=== PATIENT | female | born 1950 | race Caucasian/White ===

== ENCOUNTER 2017-09-13 14:19 | Inpatient (IN) | payer MEDICARE, OTHER ==
--- NOTE | 2017-09-13 15:31 | CT ---
CT OF THE BRAIN WITHOUT CONTRAST: Date: 09/13/17 COMPARISON: None. HISTORY: Dizziness. Patient passed out and fell with head trauma. TECHNIQUE: Multiple contiguous axial images were obtained in a CT of the brain without contrast. FINDINGS: There are a few scattered hypodensities in the subcortical and periventricular white matter, likely secondary to small vessel ischemic disease. No large confluent infarction is seen. There is no evide nce of hydrocephalus, intracranial hemorrhage, or extra-axial fluid collection. The calvarium and overlying soft tissues are unremarkable. The visualized paranasal sinuses and mast oid air cells are well aerated. IMPRESSION: No evidence of acute intracranial abnormality. POS: [facility]
--- NOTE | 2017-09-13 16:07 | RAD ---
AP VIEW OF THE CHEST 09/13/17 INDICATION: Syncope. COMPARISON: None. FINDINGS: There is mild COPD changes. Heart size is within normal limits. There are vascular calcifications in volving the aortic arch. No acute osseous abnormality is evident. IMPRESSION: No acute cardiopulmonary abnormality. POS: [facility]
[2017-09-13 16:26] LABS: #Basophils 0.1 thou/uL (0.0-0.2); #Eosinphils 0.1 thou/uL (0.0-0.7); #Lymphocytes 2.5 thou/uL (1.20-3.40); #Monocytes 0.6 thou/uL (0.11-0.59); %Basophils 0.9 % (0.0-1.0); %Eosinophils 1.4 % (0.0-10.0); %Lymphocytes 27.1 % (21.0-51.0); %Monocytes 6.5 % (0.0-10.0); Hematocrit 47.5 % (36.0-47.0); Mean Platelet Volume 8.5 fL (7.4-10.4); Red Blood Cell (RBC) Count 4.77 mill/uL (4.20-5.40); White Blood Cell (WBC) Count 9.4 thou/uL (4.8-10.8)
[2017-09-13 16:47] LABS: ALT (SGPT) 14 U/L (8-55); AST (SGOT) 32 U/L (5-34); Alkaline Phosphatase 104 U/L (40-150); Anion Gap 24 mmol/L (10-20); BUN (Urea Nitrogen) 19 mg/dL (9.8-20.1); Bilirubin, Total 0.6 mg/dL (0.2-1.2); CK (CPK) 45 U/L (29-168); Calc. Creatinine Clearance 0 mL/min (70-130); Calcium 10.8 mg/dL (7.8-10.44); Carbon Dioxide 17 mmol/L (23-31); Chloride 101 mmol/L (98-107); Estimated GFR-MDRD 52; Globulin 3.5 g/dL (2.4-3.5); Magnesium 2.3 mg/dL (1.6-2.6); Protein, Total 7.4 g/dL (6.0-8.3)
[2017-09-13 17:53] LABS: Troponin I Less than 0.010 ng/mL (< 0.028)
[2017-09-13] MEDS ORDERED: Ondansetron ODT 4 MG TAB SL PRN (20:12)
[2017-09-13] MEDS ORDERED: Ondansetron HCl/PF 4 MG/2 ML Vial IVP PRN (20:12)
[2017-09-13 20:23] VITALS: BMI 20.9
--- NOTE | 2017-09-13 21:08 | CON ---
HISTORY OF PRESENT ILLNESS: The patient is a 66-year-old woman who presents after losing consciousness. The patient has a history of coronary artery disease. She had recently moved to this area. She has previously undergone PTCA and stent placement. She reported having also a history of atrial fibrillation. The patient most recently underwent a cardiac catheterization in April of 2017. She was found to have a 40% proximal LAD lesion. There was a 40% stenosis of the first diagonal branch and a 60% mid stenosis. The left circumflex artery was free of significant disease, and the right coronary had a 30% in-stent restenosis. The patient has been on medical therapy. She recently has had several episodes of syncope . She suddenly loses consciousness. The patient denies having any chest discomfort. The patient is not lose control of her bladder or bowel. PAST MEDICAL HISTORY: 1. Hypertension. 2. Hypercholesterolemia. 3. Diabetes mellitus. 4. Atrial fibrillation. PAST SURGICAL HISTORY: Bilateral mastectomy. ALLERGIES: ERYTHROMYCIN, PENICILLIN. SOCIAL HISTORY: The patient continues to smoke. MEDICATIONS ON ADMISSION: Effexor 150 daily, Plavix 75 daily, metformin 850 daily, Crestor 40 at bedtime, tamoxifen 20 daily,and aspirin 81 daily. REVIEW OF SYSTEMS: Ten-point system otherwise unremarkable. No history of easy bruising, bleeding , bright red blood per rectum. PHYSICAL EXAMINATION: GENERAL: This is a thin woman in no acute distress. VITAL SIGNS: BP-130/80. NECK: No jugular venous distention. LUNGS: Clear to auscultation. HEART: Regular rate and rhythm, normal S1, S2. ABDOMEN: Nondistended. EXTREMITIES: Showed trace edema. LABORATORY: Pending. IMPRESSION: 1. Syncope probably orthostatic 2. Sick sinus syndrome with atrial fibrillation. 3. Hypertension. 4. Diabetes mellitus. 5. Breast carcinoma. 6. Tobacco abuse. This patient presents after several syncopal episodes. The patient underwent an event monitor was found to have rapid atrial fibrillation, rate of 160 as well as evidence of bradycardia. With her history of syncope and sick sinus syndrome, she will need to have placement of electronic pacemaker .She will then be placed on probable antiarrhythmic therapy. The patient will be admitted to telemetry. We will arrange for possible pacemaker placement. We will follow this patient with you through her hospitalization. JE
[2017-09-13] MEDS ORDERED: Nitroglycerin 0.4 MG TAB (25 Tab Bottle) SL PRN (21:38)
--- NOTE | 2017-09-14 06:27 | HP ---
HISTORY OF PRESENT ILLNESS: Ms. Samano is a 66-year-old woman treated by Dr. Robi Wick, who was hospitalized through the emergency room with recurrent syncopal spell, coinciding with atrial fibrillation. The history is taken from the patient herself and some medical records as well as from speaking to the emergency room physician. She has had some syncopal spells in the past and is being followed by Dr. Ned Healy, lip of shank cutter. She is known to have some episodes of lightheadedness today while in the setting of her own home, she was walking with her hand, reaching out a piece of furniture for stability, and she felt dizzy. This dizziness was not a vertigo- type dizziness, but a lightheadedness. Her was by her side. With minimal warning, she collapsed and as she did, she struck her forehead on a jewelry box, but he was able to catch her before her head would strike the floor. She had also been having some shortness of breath with walking, but no chest pain or fever. She reports to me that she did feel some palpitations. Note: The patient's syncopal spell coincided with a dysrhythmia and atrial fibrillation with a rate of 160 on her Holter monitor. She was then advised to seek healthcare for this. PAST MEDICAL HISTORY: Includes coronary artery disease, status post stent placement; diabetes mellitus treated with oral medication; history of major depression; breast cancer, status post bilateral mastectomy; history of atrial flutter, history of hyperthyroidism; history of uterine cancer, status post D\T\ C; history of rheumatic fever in third grade; tobacco abuse. PAST SURGICAL HISTORY: 1. Bilateral mastectomy. 2. Cardiac stent. 3. Uterine D\T\C. HABITS: No alcohol, tobacco 40 years. SOCIAL HISTORY: The patient is . She has 4 children that live in various locations. She has a son that lives locally. She is retired. She likes to play [employer] games on her telephone. Her [employer]aritan is [employer]. She moved to the area within the last year. POSSIBLE ALLERGIES: 1. ERYTHROMYCIN causes rash. 2. PENICILLIN causes rash. 3. PREDNISONE causes rash. MEDICATIONS: Include mirtazapine 7.5 mg daily, Crestor 40 mg daily, venlafaxine ER 150 mg daily, vitamin D 2000 international units daily, tamoxifen 20 mg daily, metformin 850 mg daily, 81 mg aspirin daily, clopidogrel bisulfate 75 mg daily. PHYSICAL EXAMINATION: VITAL SIGNS: Blood pressure 122/67, temperature 98.7, pulse 86, respiratory rate 16, O2 sat 97, weight 107 pounds. GENERAL: Alert, pleasant, in no acute distress, lying in the supine position with the head of bed raised to about 45 degrees. HEENT: There is a bluish raised area mostly to the middle portion of her forehead, consistent with a hematoma. No conjunctivitis. Oral cavity is without erythema or exudate. There are upper dentures noted. LUNGS: Clear to auscultation without crackles or wheezes. NECK: Supple without lymphadenopathy or thyromegaly. CARDIAC: Regular rate and rhythm without murmur, gallop, or rub. ABDOMEN: Soft, nontender. SKIN: With normal texture and appearance except as above. NEUROLOGIC: A 5/5 motor strength in hand manager testing as well as dorsiflexion and plantar flexion. LABORATORY AND X-RAY FINDINGS: Electrocardiogram shows normal sinus rhythm with a rate of 96. Chest x-ray is reported as normal. Head CT is reported as normal. White blood cell count 9.4, hemoglobin 15.6, platelets are 245. Sodium 138, potassium 3.8, CO2 of 17, creatinine 1.06, GFR 52, calcium 10.8, albumin 3.9. ASSESSMENT: 1. Syncopal spell with atrial fibrillation and mild head trauma. She is having symptomatic atrial fibrillation with minimal advanced warning. 2. Frontal area hematoma . 3. Coronary artery disease 4. diabetes 5. depresson PLAN: 1. Hospitalization. 2. Monitor on telemetry. 3. Cardiology consultation and definitive care for her atrial fibrillation. JE
[2017-09-14] MEDS ORDERED: Clindamycin/D5W 600 mg/50 ml Premix Bag ONE (06:31)
[2017-09-14] MEDS ORDERED: Levofloxacin 500 mg/D5W 100 ml Premix Bag ONE (06:31)
[2017-09-14] MEDS ORDERED: Dextrose 5% in Water 1,000 ML IV PRN (08:10)
[2017-09-14] MEDS ORDERED: Dextrose 50% Abboject 50 ML SYRINGE SLOW IVP PRN (08:10)
[2017-09-14] MEDS ORDERED: HumaLOG 300 UNITS/3 ML VIAL SC PRN (08:10)
[2017-09-14] MEDS ORDERED: Ondansetron HCl 4 MG/5 ML UDCUP PO PRN (08:11)
[2017-09-14] MEDS ORDERED: Ondansetron HCl/PF 4 MG/2 ML Vial IVP PRN (08:11)
--- NOTE | 2017-09-14 08:45 | PRG ---
DATE OF SERVICE: 09/14/2017 HISTORY OF PRESENT ILLNESS: The patient states she has been resting comfortably in bed upon transfer to floor. No further syncopal episodes at this point in time. Bruising over in her left arm and forehead still ache, but her pain is tolerable. She would prefer not to take medications if possible for pain. She has no current chest pain or shortness of breath. The patient verbalized understanding about possible need for pacemaker given both past and slow rhythms. Dr. Healy has consulted Dr. Wang for evaluation of pacemaker placement. Dr. Wang noted the patient's orthostasis and tachyarrhythmia's, will seek electrophysiology follow up prior to any pacemaker placement as the patient would likely still need additional medications for orthostatic hypotension or tachyarrhythmia's on top of pacemaker. The patient and family, including son and at bedside verbalized understanding regarding this evaluation. The patient has no acute complaints otherwise. VITAL SIGNS: On arrival to the floor this morning, temperature of 97.7, pulse of 83, respiratory rate 17, oxygen saturation 97% on room air, blood pressure 169/87, lowest heart rate since on the floor 75. Highest heart rate 105. The patient currently in the 90s on heart rate. LABORATORY DATA: White blood cell count of 9.4, hemoglobin 15.6, platelet count 245. Troponin less than 0.01. Sodium of 138, potassium of 3.8, chloride of 101, BUN 19, creatinine of 1.06, blood glucose last check of 127, calcium of 10.8, albumin 3.9, AST of 32, ALT of 14. Review of CT brain negative for acute intracranial event. CT chest negative for acute cardiothoracic event. PHYSICAL EXAMINATION: GENERAL: The patient is alert and oriented, no acute distress. HEENT: Head is normocephalic. Ecchymosis to frontal bones medially along the midline, tender to touch. No lacerations noted. Extraocular movements are intact. Sclerae are clear. NECK: Supple. Slightly stiff, but otherwise nontender. HEART: Regular rate and rhythm at time of exam. No murmurs auscultated. LUNGS: Clear to auscultation bilaterally. ABDOMEN: Soft, nontender, positive bowel sounds throughout. EXTREMITIES: Lower extremities without cyanosis or edema. Multiple ecchymoses to the upper and lower extremities from prior fall, the largest of which is the left medial arm. NEUROLOGIC: The patient is alert and oriented x3. Speech is normal. ASSESSMENT AND PLAN: 1. Paroxysmal atrial fibrillation with rapid ventricular response captured on event monitor placed and my request for Dr. Healy's office. Since arrival to the hospital, her heart rate has been much more stable. Electrophysiology being consulted by Dr. Wang for evaluation for any possible ablation or arrhythmia medications, recommendations. 2. Orthotic hypertension. The patient was both orthostatic in my office and Dr. Healy's office. She was started on 5 mg b.i.d. of Midodrine which the patient has been able to take possibly for 1 day prior to the syncopal episode and tachycardia event. Currently held while inpatient. The patient is currently on bed rest. 3. Bradycardia, no evidence of bradycardia at this hospitalization. The patient has lowest documented heart rate of 54 in the last 2 months, but this was a self-monitoring with event monitor in place. 4. Syncope likely secondary to tachyarrhythmia and orthostatic hypotension as above, following up with electrophysiology's recommendations as well as cardiology's recommendations for any pacemaker placement. 5. Diabetes type 2, currently controlled with metformin. We will follow Accu- Cheks and sliding scale insulin as needed. 6. Coronary artery disease. The patient has been unable to tolerate beta blockers, GRACIE inhibitors secondary to orthostatic hypotension. She is currently compliant with aspirin and Plavix and Crestor. 7. Sick sinus syndrome. Given patient's bradycardia and tachycardia, evaluations as per above. [facility]
[2017-09-14] MEDS ORDERED: Sodium Chloride 0.9% 1,000 ML IV SCH (13:00)
[2017-09-14] MEDS ORDERED: Lidocaine 1% w/Epinephrine 1:100K 20 ML VIAL ONE (15:02)
[2017-09-14] MEDS ORDERED: Sodium Chloride 0.9% 10 ML ONE (15:56)
[2017-09-14] MEDS: metFORMIN 850 MG TAB PO SCH ×2 (17:12→18:09)
[2017-09-14] MEDS ORDERED: Acetaminophen 500 MG TAB PO SCH (17:15)
[2017-09-14] MEDS: Venlafaxine HCl XR 150 MG CAP PO SCH (18:08)
[2017-09-14] MEDS: Fish Oil 1,000 MG CAP PO SCH (18:08)
[2017-09-14] MEDS: Clopidogrel Bisulfate 75 MG TAB PO SCH (18:10)
[2017-09-14] MEDS: Dronedarone HCl 400 MG TAB PO SCH (18:10)
[2017-09-14] MEDS: Aspirin 81 mg Enteric Coated Tablet PO SCH (18:10)
--- NOTE | 2017-09-14 18:32 | CCL ---
INDICATION FOR PROCEDURE: This is a 66-year-old female with multiple syncopal episodes which are either due to the significant bradycardia or due to orthostatic hypotension. She does have episodes also of atrial arrhythmias. She was seen also by the branch operation evaluation manager. It was found to have most likely she would best be served by undergoing Linq device, an implantable loop recorder to determine whether or not her synco pal episodes are associated with bradycardia or not and whether or not she may be a candidate to und ergo further ablations for the atrial flutter/fibrillation prior to placing pacemaker insertion, sh e may not have bradycardia will need to determine whether or not she is having a true syncopal episo maddy due to bradycardia or some other etiology. She was taken to the recovery area where she underwent local Xylocaine after being given sterile pre p and then the Linq implantable loop recorder was easily implanted without difficulties or complicat ions. The thresholds and the sensing was set and sensing was found to be normal. There were no complicati ons or difficulties encountered.
[2017-09-14] MEDS: Midodrine HCl 5 MG TAB PO SCH (20:49)
[2017-09-14] MEDS: Mirtazapine 15 MG TAB PO SCH (20:49)
--- NOTE | 2017-09-15 01:05 | CON ---
ELECTROPHYSIOLOGY CONSULTATION REPORT DATE OF CONSULTATION: 09/14/2017 REFERRING PHYSICIAN: Dr. Healy. I am seeing Ms. Samano at our [facility] telemetry floor as an electrophysiology consult ant. Her problems are: 1. Recurrent syncopal spell. A. Prior orthostasis noted. B. Tachybrady syndrome with episodic atrial fibrillation/flutter on the monitor in the past And a t endency for mild bradycardia. 2. History of coronary artery disease. A. Prior stent placement in 11/2015 in the RCA. B. Repeat left heart catheterization in 04/18/2017 with LVEF of 50%, 40% proximal LAD, 60% mid LAD and 30% RCA stenosis. 3. Coronary artery risk factors. A. Hypertension. B. Hypercholesterolemia. C. Type 2 diabetes. 4. History of breast cancer, status post bilateral mastectomy. 5. History of smoking. ALLERGIES: ERYTHROMYCIN and PENICILLIN. MEDICATIONS: At home include Effexor, Plavix, metformin, Crestor, tamoxifen and aspirin. SUBJECTIVE: Ms. Samano is here with symptoms of recurrent syncopal spell in fact recurrent episo de - prior to admission and she was getting up, got dizzy, tried to get hold of the edge of a table and then she collapsed. Her was nearby, but could not catch her from falling on the ground. She denied palpitations. No chest pain is noted and she had no seizure-like activity. No inconti nence, no postictal state. She did have significant bruising. Currently, she is feeling well. No angina, no CHF, no PND, orthopnea or lower extremity edema. She does get dizziness on standing up t o mild degree. Dr. Healy just started her on midodrine. Rest of 12-point system otherwise unrem arkable. PAST MEDICAL HISTORY: As above. SOCIAL HISTORY: Patient denies smoking, EtOH or drug abuse. FAMILY HISTORY: Noncontributory. OBJECTIVE: VITAL SIGNS: Blood pressure is 133/65, heart rate is 79, respirations 18 and temperature 98 degrees Fahrenheit. Orthostatic blood pressure measurements this morning reveals reclining blood pressure 149/77 and standing blood pressure 131/92. GENERAL: This is an alert and oriented woman in no apparent distress. NECK: Supple. Jugular veins are not distended. CHEST: Coarse without crackles. CARDIOVASCULAR: Heart sounds are regular to rate and rhythm. No murmur or gallop. ABDOMEN: Benign. Bowel sounds are positive. EXTREMITIES: Lower extremities without edema, clubbing or cyanosis. Pulses are adequate. NEUROLOGIC: Patient is nonfocal. MUSCULOSKELETAL: Without joint swelling or deformities. SKIN: Without rash. Mastectomy scars were noted. DATABASE: The EKGs reviewed revealing sinus rhythm at 96 beats per minute on 09/13/2017. Initial Q TC is 467 milliseconds. The subsequent telemetry strips reveal runs of atrial fibrillation, possibly short flutters . I also reviewed the loop recorder notes from Dr. Healy's office and that seems to indicate atrial fibrillation with rapid rate, not typically symptomatic. ASSESSMENT: Ms. aSmano is a pleasant 66-year-old woman with prior history of orthostatic hypoten carlos started quite a few time ago, has been getting progressively worse. She had prior syncopal spe lls. Loop recorder does reveal episodes of atrial fibrillation not necessarily finding correlation to the rhythm. Also had tendency for bradycardia. Now, she is admitted with the recurrent syncopal spell and currently only mildly orthostatic after midodrine was initiated just prior to the admissi on. 1. I discussed the issues with her and Dr. Healy as well as Dr. Wang. This lady's syncopal spel ls are likely to be orthostatic in nature, although additionally atrial fibrillation with rapid rate versus bradycardic events could still possibly contribute to this. So far the longer loop recorder did not reveal true correlation with arrhythmias. On the other hand, she clearly has episodes of a trial fibrillation with rapid rate. With the bradycardia tendency, it will be howard to monitor her i f any negative chronotropic agents will be used on her. I think it will be reasonable to consider M ultaq, which likely would reduce her heart rate response even if atrial fibrillation recurs, but guillaume l need to be watched for bradycardia. Also, further QT prolongation also need to be monitored hence she is still on tamoxifen. She might benefit from hospital stay for the duration of a Multaq loadi ng over the weekend. Also a long-term loop recorder implant might be reasonable. 2. Paroxysmal atrial fibrillation was asymptomatic. She might be a reasonable candidate for electr ophysiology study and ablation procedure, but likely will need pulmonary venous isolation procedure, which should be only performed with anticoagulation on board. Currently, as I discussed with Dr. Jessica moreno, she is not a candidate for anticoagulation due to her severe falls and syncopal spells. Ho pefully, her orthostasis will improve with administration of midodrine and possibly Florinef and thi s anticoagulation could be reconsidered at that time. Subsequently, possibly ablation could be cons idered if true necessity after Multaq use. 3. Hypertension. Monitor for supine hypertension, which will be likely difficult to control. 4. Coronary artery disease, currently stable. Alternatively, possible flecainide could be also con sidered, but likely will need additional beta-mathew therapy as well if the Multaq fails. On the o ther hand; I would use it doing as a last resort for antiarrhythmic agents. PLAN: 1. Loop recording implant. 2. Multaq. 3. Monitor with telemetry and EKGs for bradycardia and worsening QT prolongation. 4. Optimize orthostasis by titrating midodrine and possibly Florinef.
[2017-09-15] MEDS: Venlafaxine HCl XR 150 MG CAP PO SCH ×2 (11:29→11:30)
[2017-09-15] MEDS: Dronedarone HCl 400 MG TAB PO SCH ×2 (11:30→17:06)
[2017-09-15] MEDS: Midodrine HCl 5 MG TAB PO SCH ×2 (11:30→20:48)
[2017-09-15] MEDS: Fish Oil 1,000 MG CAP PO SCH (11:30)
[2017-09-15] MEDS: metFORMIN 850 MG TAB PO SCH (11:30)
[2017-09-15] MEDS: Aspirin 81 mg Enteric Coated Tablet PO SCH (11:31)
[2017-09-15] MEDS: Clopidogrel Bisulfate 75 MG TAB PO SCH (11:31)
--- NOTE | 2017-09-15 14:00 | PDOC.CTH ---
<Abi Menjivar - Last Filed: 09/15/17 13:55> Cardiology Progress Note - Subjective The pt was seen and examined. No overnight events. No cardiac complaints. There were some oozing from LINQ placement site last night. Hematoma around the site, no bleeding or no pain to palpate around the site - Objective Vital Signs Temp Pulse Resp BP BP Pulse Ox 09/15/17 11:38 98.9 F 80 17 134/80 97 09/15/17 09:05 98.1 F 76 18 139/82 96 09/15/17 08:00 98.3 F 78 78 H 97 09/15/17 04:00 98.3 F 78 78 H 128/75 97 Weight 107 lb 12.8 oz 09/14/17 09/15/17 09/16/17 06:59 06:59 06:59 Intake Total 810 Balance 810 - Physical Examination General/Neuro: alert & oriented x3 Neck: no JVD present Lungs: CTA Heart: RRR Abdomen: soft Extremities: other: (No edemas; bruise on her forehead and around the LINQ site) - Telemetry Telemetry Rhythm: SR with PACs - Labs Result Diagrams: 09/13/17 16:04 09/13/17 16:04 Troponin/CKMB CK-MB (CK-2) 1.7 ng/mL (0-6.6) 09/13/17 16:03 Troponin I Less than 0.010 ng/mL (< 0.028) 09/13/17 16:03 - Assessment/Plan 1. Multiple hx of syncopal episodes - s/p fall; LINQ placement on 09/14/17; 2. Tachybrady syndrome with Afib with RVR - SR with PACs since 2199 @ 09/14/17 with Multaq; HR up to 130-140s for a few secs today; the pt was asymptomatic and stable VS 3. CAD with hx of stent in RCA in 2016 - Stable; on ASA, Plavix, cont. monitor 4. HTN - stable with current medication 5. Hyperlipidemia - on Statin med 6. DM type 2 - on Metformin; managed by PCP 7. Tobacco Abuse - smoking education given to the pt 8. Hx of Breast Ca - on Tamoxifen; MAR reviewed Review of Systems - Review of Systems Constitutional: reports: no symptoms reported EENTM: reports: no symptoms reported Respiratory: reports: no symptoms reported Cardiac (ROS): reports: no symptoms reported ABD/GI: reports: no symptoms reported : reports: no symptoms reported Musculoskeletal: reports: no symptoms reported Skin: reports: no symptoms reported Neurological: reports: no symptoms reported <Emerald Wang - Last Filed: 09/15/17 20:40> Cardiology Progress Note - Objective Vital Signs Temp Pulse Resp BP BP Pulse Ox 09/15/17 15:57 97.7 F 78 18 122/75 95 09/15/17 11:38 98.9 F 80 17 134/80 97 09/15/17 09:05 98.1 F 76 18 139/82 96 Weight 107 lb 12.8 oz 09/14/17 09/15/17 09/16/17 06:59 06:59 06:59 Intake Total 810 720 Balance 810 720 - Labs Result Diagrams: 09/13/17 16:04 09/13/17 16:04 Troponin/CKMB CK-MB (CK-2) 1.7 ng/mL (0-6.6) 09/13/17 16:03 Troponin I Less than 0.010 ng/mL (< 0.028) 09/13/17 16:03 - Assessment/Plan Pt. was seen and eval. by me. I agree with the A/p by the SURGICAL SERVICES TECH. The site of the loop recorder is WN post procedure.No significant bradycardia. Tolerating the Multaq.
[2017-09-15] MEDS: Acetaminophen 500 MG TAB PO PRN (14:24)
[2017-09-15] MEDS: Mirtazapine 15 MG TAB PO SCH (20:48)
[2017-09-16] MEDS: Acetaminophen 500 MG TAB PO PRN ×2 (07:33→19:53)
[2017-09-16] MEDS: metFORMIN 850 MG TAB PO SCH (07:33)
[2017-09-16] MEDS: Fish Oil 1,000 MG CAP PO SCH (07:34)
[2017-09-16] MEDS: Clopidogrel Bisulfate 75 MG TAB PO SCH (07:35)
[2017-09-16] MEDS: Venlafaxine HCl XR 150 MG CAP PO SCH (07:35)
[2017-09-16] MEDS: Aspirin 81 mg Enteric Coated Tablet PO SCH (07:35)
[2017-09-16] MEDS: Midodrine HCl 5 MG TAB PO SCH ×2 (07:35→19:53)
[2017-09-16] MEDS: Dronedarone HCl 400 MG TAB PO SCH ×2 (07:35→17:36)
[2017-09-16] MEDS ORDERED: Digoxin 0.5 MG/2 ML AMP SLOW IVP SCH (10:15)
[2017-09-16 12:06] LABS: Anion Gap 14 mmol/L (10-20); BUN (Urea Nitrogen) 17 mg/dL (9.8-20.1); Calc. Creatinine Clearance 37 mL/min (70-130); Calcium 10.9 mg/dL (7.8-10.44); Carbon Dioxide 25 mmol/L (23-31); Chloride 103 mmol/L (98-107); Estimated GFR-MDRD 46
--- NOTE | 2017-09-16 15:20 | PDOC.CTH ---
<Abi Menjivar - Last Filed: 09/16/17 15:19> Cardiology Progress Note - Subjective the pt was seen and examined. No overnight events. No cardiac complaints. 3 hr episode of Afib from 0830 to 1130; converted back to SR. The pt was asymptomatic. - Objective Vital Signs Temp Pulse Resp BP BP Pulse Ox 09/16/17 12:00 97.7 F 78 18 106/70 97 09/16/17 10:55 82 09/16/17 08:00 98.1 F 81 16 99 09/16/17 07:38 98.1 F 81 16 126/77 99 09/16/17 04:00 97.9 F 74 18 125/77 96 Weight 112 lb 3.2 oz 09/15/17 09/16/17 09/17/17 06:59 06:59 06:59 Intake Total 810 1020 240 Balance 810 1020 240 - Physical Examination General/Neuro: alert & oriented x3 Neck: no JVD present Lungs: CTA Heart: RRR Abdomen: soft Extremities: other: (No edema; no bleeding from LINQ placement site) - Telemetry Telemetry Rhythm: SR - Labs Result Diagrams: 09/13/17 16:04 09/16/17 11:28 Troponin/CKMB CK-MB (CK-2) 1.7 ng/mL (0-6.6) 09/13/17 16:03 Troponin I Less than 0.010 ng/mL (< 0.028) 09/13/17 16:03 - Assessment/Plan 1. Multiple hx of syncopal episodes - s/p fall; LINQ placement on 09/14/17; 2. Tachybrady syndrome with Afib with RVR - about 3 hr episode of Afib with HR up to 130-140s today; Converted back to SR at 1130 today; on Multaq and started Digoxin; the pt was asymptomatic and stable VS; on ASA, OAC is on hold due to multiple of Falls; The pt and family concerned about OAC due to hx of falls 3. CAD with hx of stent in RCA in 2016 - Stable; on ASA and Plavix; cont. monitor 4. HTN - stable with current medication 5. Hyperlipidemia - on Statin med 6. DM type 2 - on Metformin; managed by PCP 7. Tobacco Abuse - smoking education given to the pt 8. Hx of Breast Ca - on Tamoxifen; JAN reviewed Review of Systems - Review of Systems Constitutional: reports: no symptoms reported EENTM: reports: no symptoms reported Respiratory: reports: no symptoms reported Cardiac (ROS): reports: no symptoms reported ABD/GI: reports: no symptoms reported : reports: no symptoms reported Musculoskeletal: reports: no symptoms reported Skin: reports: no symptoms reported <Emerald Wang - Last Filed: 09/16/17 20:18> Cardiology Progress Note - Objective Vital Signs Temp Pulse Resp BP Pulse Ox 09/16/17 17:35 80 09/16/17 15:47 97.9 F 79 16 114/72 96 09/16/17 12:00 97.7 F 78 18 106/70 97 09/16/17 10:55 82 Weight 112 lb 3.2 oz 09/15/17 09/16/17 09/17/17 06:59 06:59 06:59 Intake Total 810 1020 880 Balance 810 1020 880 - Labs Result Diagrams: 09/13/17 16:04 09/16/17 11:28 Troponin/CKMB CK-MB (CK-2) 1.7 ng/mL (0-6.6) 09/13/17 16:03 Troponin I Less than 0.010 ng/mL (< 0.028) 09/13/17 16:03 - Assessment/Plan Pt. seen and evaluated. She complained this afternoon of a dizzy episode when she tried to get up and go to the bathroom. No changes on the monitor. BP was not evaluated at that time. I agre with the A/P by the ELECTRICAL SOFTWARE ENGINEER. I will add waist high compression hose for her orthostatic hypotension.
[2017-09-16] MEDS: Digoxin 0.5 MG/2 ML AMP SLOW IVP SCH ×2 (17:35→23:43)
[2017-09-16] MEDS: Mirtazapine 15 MG TAB PO SCH (19:52)
[2017-09-17] MEDS: Dronedarone HCl 400 MG TAB PO SCH ×2 (08:21→16:16)
[2017-09-17] MEDS: Aspirin 81 mg Enteric Coated Tablet PO SCH (08:21)
[2017-09-17] MEDS: Clopidogrel Bisulfate 75 MG TAB PO SCH (08:22)
[2017-09-17] MEDS: Digoxin 0.125 MG TAB PO SCH (08:22)
[2017-09-17] MEDS: Midodrine HCl 5 MG TAB PO SCH ×2 (08:23→21:27)
[2017-09-17] MEDS: Fish Oil 1,000 MG CAP PO SCH (08:23)
[2017-09-17] MEDS: Acetaminophen 500 MG TAB PO PRN (17:25)
[2017-09-17] MEDS: Mirtazapine 15 MG TAB PO SCH (21:27)
--- NOTE | 2017-09-17 22:04 | EKG ---
Test Reason : Blood Pressure : / mmHG Vent. Rate : 077 BPM Atrial Rate : 077 BPM P-R Int : 174 ms QRS Dur : 088 ms QT Int : 438 ms P-R-T Axes : 065 050 030 degrees QTc Int : 495 ms Sinus rhythm with Premature atrial complexes Prolonged QT Abnormal ECG When compared with ECG of 16-SEP-2017 01:53, (Unconfirmed) Premature atrial complexes are now Present Confirmed by BENITEZ PEPE, SMagdaleno (4) on 09/17/2017 10:03:32 PM Referred By: Confirmed By:DR. Rick MARQUIS MD
--- NOTE | 2017-09-17 22:07 | EKG ---
Test Reason : Blood Pressure : / mmHG Vent. Rate : 078 BPM Atrial Rate : 078 BPM P-R Int : 204 ms QRS Dur : 086 ms QT Int : 368 ms P-R-T Axes : 079 059 -17 degrees QTc Int : 419 ms Normal sinus rhythm Nonspecific ST abnormality Abnormal QRS-T angle, consider primary T wave abnormality Abnormal ECG When compared with ECG of 16-SEP-2017 01:54, (Unconfirmed) Premature atrial complexes are no longer Present Non-specific change in ST segment in Inferior leads Non-specific change in ST segment in Anterior leads Inverted T waves have replaced nonspecific T wave abnormality in Inferior leads QT has shortened Confirmed by BENITEZ PEPE, DR. Cabrera (4) on 09/17/2017 10:06:37 PM Referred By: [facility] Confirmed By:DR. Rick MARQUIS MD
--- NOTE | 2017-09-18 06:29 | PRG ---
DATE OF SERVICE: 09/17/2017 HISTORY OF PRESENT ILLNESS: The patient states she is significantly more fatigued and having a notable decrease in appetite, worsening since the initiation of Multaq and digoxin. She had difficulty with appetite in the past 2 years. She does not attempt to get out of bed beyond the restroom with assistance; ambulated up and down hallway and has not been up to chair secondary to strict bed rest, undergoing evaluation. Denies any issues with loop recorder surgical site. Denies any fevers or chills. Verbalizes understanding about titration of orthostatic hypotension, medications, and possible ablation if stabilized and anticoagulated in the future with electrophysiology. PHYSICAL EXAMINATION: VITAL SIGNS: Temperature 98.0, pulse of 75, respiratory rate of 16, oxygen saturation 97% on room air, blood pressure 105/57, pulse range last 24 hours 71 to 75. Orthostatic blood pressures, supine, 130/66, standing 74/47, blood pressure, sitting 109/61. GENERAL: The patient is alert and oriented, fatigued, pleasant. HEENT: Normocephalic, atraumatic. Extraocular movements are intact. Sclerae are clear. NECK: Supple, nontender. HEART: Regular rate and rhythm. No murmurs are auscultated. Left anterior chest site with Steri-Strips and heme crust, no exudates or extending erythema. LUNGS: Clear to auscultation bilaterally. ABDOMEN: Soft, nontender, positive bowel sounds throughout. EXTREMITIES: Lower extremities without cyanosis, edema, or compression stockings waist high, currently in place. NEUROLOGIC: The patient is alert and oriented x3, fatigue, sometimes somnolent ; however, easily arousable, answer appropriate with questioning. ASSESSMENT AND PLAN: Paroxysmal atrial fibrillation. The patient's rate apparently appears to be controlled on Multaq and digoxin after a 3 to 4 hour run of tachycardia while on Multaq alone. The patient does appear to be maintaining blood pressures without movement and continues to be orthostatic, does appear to have increased fatigue with new medications, orthostatic hypotension. The patient tolerating midodrine 5 mg b.i.d. plan to increase and titrate, possibly add additional orthostatic medications, bradycardia, no further evidence of bradycardia on record at this point in time, no further episodes of syncope, although the patient has not been ambulated, currently consulting a walking program. We will consult physical therapy as needed if the patient fails to walk 200 feet for potential discharge home tomorrow and case management as needed, type 2 diabetes, continue on metformin, sliding scale insulin with Accu-Cheks, currently controlled blood sugars, but the patient is not eating very much, added Glucerna shakes t.i.d. spaced apart for meals and attempt to get the patient to eat 5-6 smaller meals to not shunt large quantities of blood to the GI system while digesting secondary to orthostatic hypotension. The patient is instructed to eat higher salt content food. Plan to follow up with cardiology and EP outpatient unless further interventions are recommended inpatient, following up the patient's ambulatory status prior to discharge as above. Compression stockings is in place. The patient on anticoagulation secondary to syncopal episodes. JE
[2017-09-18] MEDS: Fish Oil 1,000 MG CAP PO SCH (08:30)
[2017-09-18] MEDS: Dronedarone HCl 400 MG TAB PO SCH ×2 (08:30→17:28)
[2017-09-18] MEDS: Aspirin 81 mg Enteric Coated Tablet PO SCH (08:31)
[2017-09-18] MEDS: Clopidogrel Bisulfate 75 MG TAB PO SCH (08:31)
[2017-09-18] MEDS: Digoxin 0.125 MG TAB PO SCH (08:31)
[2017-09-18] MEDS: metFORMIN 850 MG TAB PO SCH (08:31)
[2017-09-18] MEDS: Fludrocortisone Acetate 0.1 MG TAB PO SCH (08:32)
[2017-09-18] MEDS: Midodrine HCl 5 MG TAB PO SCH ×3 (08:33→20:36)
[2017-09-18] MEDS: Venlafaxine HCl XR 150 MG CAP PO SCH (08:34)
[2017-09-18] MEDS: Acetaminophen 500 MG TAB PO PRN (09:23)
[2017-09-18] MEDS: Mirtazapine 15 MG TAB PO SCH (20:35)
--- NOTE | 2017-09-19 06:06 | PRG ---
DATE OF SERVICE: 09/18/2017 HISTORY OF PRESENT ILLNESS: The patient is still fatigued and remains orthostatic. She has no new c omplaints. She had 2 episodes of bradycardia with associated atrial flutter rhythm per nursing. Ca rdiology was informed. The patient is being reevaluated for possible pacemaker. The patient was ab le to ambulate over 300 feet with walking program; however, was only in the morning was unable to mu ster energy given bradycardia event in the afternoon. The patient was made n.p.o. at midnight for possible surgery tomorrow. PHYSICAL EXAMINATION: VITAL SIGNS: Temperature 98.1, pulse of 82, respiratory rate of 16, oxygen saturation 94% on room a ir, blood pressure of 112/59. GENERAL: The patient is alert and oriented, fatigued, no acute distress. HEENT: Normocephalic, atraumatic and resolving ecchymosis of frontal area of forehead. Extraocular movements are intact. Sclerae are clear. NECK: Supple, nontender. HEART: Regular rate and rhythm at time of exam. No murmurs auscultated. LUNGS: Clear to auscultation bilaterally. ABDOMEN: Soft, nontender, positive bowel sounds throughout. EXTREMITIES: Lower extremities without cyanosis or edema, ecchymoses to bilateral upper extremities . ASSESSMENT AND PLAN: 1. Tachybrady arrhythmias as above, presents for reevaluation for pacemaker under Cardiology and El ectrophysiology. Will follow up on the recommendations, continuing the patient with Multaq and digo thomas. 2. Orthostatic hypotension, the patient has been initiated on Midodrine and has been started on Stanley rinef. Midodrine was increased to t.i.d. 3. Diabetes type 2. Continue metformin, sliding scale insulin with Accu-Cheks currently a.c. and a t bedtime. We will follow up with Cardiology's recommendations.
[2017-09-19] MEDS: Clopidogrel Bisulfate 75 MG TAB PO SCH (08:10)
[2017-09-19] MEDS: Digoxin 0.125 MG TAB PO SCH (08:10)
[2017-09-19] MEDS: Dronedarone HCl 400 MG TAB PO SCH ×2 (08:10→15:49)
[2017-09-19] MEDS: metFORMIN 850 MG TAB PO SCH (08:10)
[2017-09-19] MEDS: Aspirin 81 mg Enteric Coated Tablet PO SCH (08:10)
[2017-09-19] MEDS: Fludrocortisone Acetate 0.1 MG TAB PO SCH (08:11)
[2017-09-19] MEDS: Fish Oil 1,000 MG CAP PO SCH (08:11)
[2017-09-19] MEDS: Midodrine HCl 5 MG TAB PO SCH ×3 (08:12→20:40)
[2017-09-19] MEDS: Venlafaxine HCl XR 150 MG CAP PO SCH (08:12)
[2017-09-19] MEDS ORDERED: Fludrocortisone Acetate 0.1 MG TAB PO SCH (14:21)
--- NOTE | 2017-09-19 15:28 | PRG ---
DATE OF SERVICE: 09/19/2017 HISTORY OF PRESENT ILLNESS: The patient remains fatigued and orthostatic by nurse's vital signs this a.m. Another report of bradyarrhythmia today around noontime. Recommendations per Electrophysiolog y and Cardiology, currently no firm indication for pacemaker placement. I discussed with the patient should she walk 350 feet, she may potentially be a candidate for discharge home. Discussed with her safety profile with her if he would be able to feel comfortable lifting her from any falls. She said she would get back with me regarding this. Specifically, the patient has no new reported s ymptoms. No chest pain, shortness breath, no cough, no congestion, no dysuria, no rashes. Positive for bruising of extremities and forehead still. Patient with baseline back pain while lying in bed. PHYSICAL EXAMINATION: VITAL SIGNS: Review of vital signs this a.m., temperature of 97.9, pulse of 83, respiratory rate of 18, oxygen saturation 94% on room air. Orthostatic blood pressures, sitting 139/54, standing of 71/4 1, and supine 117/56. GENERAL: The patient is alert and oriented, fatigued, in no acute distress. HEENT: Head is normocephalic. Ecchymosis to the frontal region of forehead, resolving various. Ext raocular movements intact. NECK: Supple, nontender. HEART: Regular rate and rhythm. No murmurs at this time of exam. LUNGS: Clear to auscultation bilaterally. ABDOMEN: Soft, nontender, positive bowel sounds throughout. EXTREMITIES: Lower extremities without cyanosis or edema. NEUROLOGIC: The patient is alert and oriented x3, no focal deficits. Speech is normal. ASSESSMENT AND PLAN: 1. Tachy-bradyarrhythmia including runs of atrial fibrillation/atrial flutter. Per Electrophysiolog y and Cardiology recommendations, no acute intervention. Continue Multaq and digoxin. EP recommendi ng go up on the patient's mineralocorticoid and continue midodrine for her orthostatic hypotension. 2. For her diabetes, type 2, she remains stable on metformin and sliding scale, Accu-Cheks a.c. and at bedtime. We will discuss with family the patient's safety profile after going home. We will either potentiall y discharge home if Cardiology agreement tomorrow versus seek placement in SNF for ambulation and str engthening for deconditioning regarding patient's recent arrhythmias and bedridden state with decreas ed diet, continuing Glucerna shakes t.i.d. for replacement. The patient instructed to eat 5-6 small meals per day rather than large meals to aid with prevention of shunting of blood to her gut and high salt diet to aid with elevation of blood pressure. The patient has been marked for not a candidate for anticoagulation secondary to fall risk. The patient is currently on compression stockings regard ing lower extremities for orthostasis as well as DVT prophylaxis.
[2017-09-19] MEDS: Acetaminophen 500 MG TAB PO PRN (15:50)
[2017-09-19] MEDS: Mirtazapine 15 MG TAB PO SCH (20:40)
--- NOTE | 2017-09-20 07:57 | EKG ---
Test Reason : Blood Pressure : / mmHG Vent. Rate : 078 BPM Atrial Rate : 078 BPM P-R Int : 216 ms QRS Dur : 090 ms QT Int : 378 ms P-R-T Axes : 078 053 043 degrees QTc Int : 430 ms Sinus rhythm with 1st degree A-V block Non-specific change in ST segment in Abnormal ECG When compared with ECG of 17-SEP-2017 07:46, Nonspecific T wave abnormality has replaced inverted T waves in Inferior leads Confirmed by BENITEZ PEPE, SMagdaleno (4) on 09/20/2017 7:57:29 AM Referred By: TASHA Confirmed By:DR. Rick MARQUIS MD
--- NOTE | 2017-09-20 07:58 | EKG ---
Test Reason : Blood Pressure : / mmHG Vent. Rate : 063 BPM Atrial Rate : 326 BPM P-R Int : 000 ms QRS Dur : 080 ms QT Int : 376 ms P-R-T Axes : 000 063 079 degrees QTc Int : 384 ms Atrial flutter with variable A-V block Abnormal ECG When compared with ECG of 19-SEP-2017 11:54, (Unconfirmed) Atrial flutter has replaced Sinus rhythm T wave inversion now evident in Inferior leads Confirmed by BENITEZ PEPE, SMagdaleno (4) on 09/20/2017 7:57:40 AM Referred By: TASHA Confirmed By:DR. Rick MARQUIS MD
[2017-09-20] MEDS: Digoxin 0.125 MG TAB PO SCH (08:41)
[2017-09-20] MEDS: metFORMIN 850 MG TAB PO SCH (08:41)
[2017-09-20] MEDS: Clopidogrel Bisulfate 75 MG TAB PO SCH (08:41)
[2017-09-20] MEDS: Aspirin 81 mg Enteric Coated Tablet PO SCH (08:41)
[2017-09-20] MEDS: Dronedarone HCl 400 MG TAB PO SCH ×2 (08:41→15:44)
[2017-09-20] MEDS: Fish Oil 1,000 MG CAP PO SCH (08:41)
[2017-09-20] MEDS: Venlafaxine HCl XR 150 MG CAP PO SCH (08:42)
[2017-09-20] MEDS: Midodrine HCl 5 MG TAB PO SCH ×2 (08:42→15:44)
[2017-09-20] MEDS: Acetaminophen 500 MG TAB PO PRN (11:02)
[2017-09-20 15:42] VITALS: BP 118/63; TEMP 98.8
--- NOTE | 2017-09-23 14:55 | EKG ---
Test Reason : Blood Pressure : / mmHG Vent. Rate : 080 BPM Atrial Rate : 080 BPM P-R Int : 168 ms QRS Dur : 086 ms QT Int : 418 ms P-R-T Axes : 078 066 069 degrees QTc Int : 482 ms Normal sinus rhythm Normal ECG When compared with ECG of 13-SEP-2017 14:34, No significant change was found Confirmed by MARTHA FORRESTER (2) on 09/23/2017 2:54:55 PM Referred By: Confirmed By:MARTHA FORRESTER
--- NOTE | 2017-09-23 14:57 | EKG ---
Test Reason : Blood Pressure : / mmHG Vent. Rate : 086 BPM Atrial Rate : 086 BPM P-R Int : 168 ms QRS Dur : 084 ms QT Int : 416 ms P-R-T Axes : 071 053 074 degrees QTc Int : 497 ms Sinus rhythm with Premature atrial complexes Prolonged QT Abnormal ECG When compared with ECG of 14-SEP-2017 15:58, (Unconfirmed) Premature atrial complexes are now Present Confirmed by MARTHA FORRESTER (2) on 09/23/2017 2:57:10 PM Referred By: FRED Confirmed By:MARTHA FORRESTER
--- NOTE | 2017-09-23 15:02 | EKG ---
Test Reason : Blood Pressure : / mmHG Vent. Rate : 087 BPM Atrial Rate : 087 BPM P-R Int : 164 ms QRS Dur : 092 ms QT Int : 400 ms P-R-T Axes : 070 050 042 degrees QTc Int : 481 ms Sinus rhythm with supraventricular couplet Possible Inferior infarct , age undetermined Abnormal ECG When compared with ECG of 15-SEP-2017 05:15, (Unconfirmed) Premature atrial complexes are no longer Present Confirmed by MARTHA FORRESTER (2) on 09/23/2017 3:02:00 PM Referred By: Confirmed By:MARTHA FORRESTER
--- NOTE | 2017-09-24 09:06 | DIS ---
DATE OF ADMISSION: DATE OF DISCHARGE: 09/20/2017 PRIMARY CARE PHYSICIAN: Myself, Robi Wick M.D. The syncopal episode with strike to the head and injury to extremities. PRESENTING HISTORY OF PRESENT ILLNESS: The patient had been passing out approximately every other we ek with increasing frequency on an outpatient basis with sustaining bumps and bruises to her extremit ies. She quickly regained consciousness. This is much noted after positional changes. She was seen as outpatient in my clinic and was discussed with Dr. Healy and placed with an event monitor. Debra cole was captured to be in a tachyarrhythmia; however, was not fully clear if this had caused her syncop al episode with injury. HOSPITAL COURSE: The patient underwent evaluation for pacemaker placement given tachybrady gravy pro file. No indications for pacemaker regarding bradycardia were found while inpatient. Loop recorder, however, was placed. Consultation with Electrophysiology initially with Dr. Arteaga were carried out. The patient may be a good candidate for ablation therapy given her to diverse tachyarrhythmias on te lemetry including bradycardia with atrial flutter following initiation of Multaq and digoxin. The rob mckeon did have breakthrough episode of tachycardia on just Multaq alone. She became fatigued and con tinued orthostatic with daily checks throughout her hospital stay was initiated on higher dose midodr ine and was discharged on Florinef as well per Electrophysiology's recommendations. The patient was able to walk barely 50 feet with walking program and felt comfortable with son and regarding safety on discharge and was discharged home with home health. DISCHARGE FOLLOWUP: Prior to , next Sunday, with myself Dr. Robi Wick next with both, Dr. Healy, Cardiology and Dr. Arteaga with Electrophysiology on an outpatient basis. DISCHARGE DIET: Increased salt intake, diabetic diet, protein shakes t.i.d. and recommended Glucerna supplementation. DISCHARGE ACTIVITY: With assistance, will attempt to get gait belt for patient, [facility]. DISCHARGE MEDICATIONS: Include venlafaxine 150 mg one tab p.o. daily, tamoxifen 20 mg 1 tab p.o. teja ly, Crestor 40 mg 1 tab p.o. daily, nitroglycerin 0.4 mg sublingual q.2 minutes p.r.n. chest pain, mi rtazapine 7.5 mg 1 tab p.o. at bedtime, midodrine 5 mg 1 tab p.o. t.i.d., metformin 850 mg 1 tab p.o. daily, Megace 3 Fatty Acid one capsule p.o. daily, Florinef 0.2 mg 1 tab p.o. daily, Multaq 400 mg 1 tab p.o. b.i.d., digoxin 0.125 mg 1 tab p.o. q.a.m., Plavix 75 mg 1 tab p.o. daily, vitamin D3 2000 units 1 tab p.o. daily, and aspirin 81 mg 1 tab p.o. daily. CONSULTATIONS: Include Cardiology/Interventional Cardiology with Dr. Wang, Cardiology with Dr. Carrillo murillo. Electrophysiology with Dr. Arteaga. STUDIES PERFORMED: Include loop recorder placement on 09/14/2017 with cardiac catheterization with p reserved ejection fraction. CT of the brain on admission 09/13/2017 without acute intracranial bleed . PROBLEMS/DIAGNOSES: Include the paroxysmal atrial fibrillation with rapid ventricular response, pardeep ycardia with atrial flutter, orthostatic hypotension. Syncopal episode, diabetes type 2, coronary ar ramirez disease, sick sinus syndrome, fatigue, gait disturbance, deconditioning.
== END 2017-09-20 17:31 | disposition home health service (06) | DRG 262 ==
LOC: ERS 14:19 → 2NO 17:50
PROVIDERS: ADMIT Family Medicine; ATTEND Family Medicine
PROC: 0JH602Z Insertion of Monitoring Device into Chest Subcutaneous Tissue and Fascia, Open Approach (ICD-10-PCS; principal; 2017-09-14)
DX: I49.5 Sick sinus syndrome (principal); C50.919 Malignant neoplasm of unspecified site of unspecified female breast; I48.0 Paroxysmal atrial fibrillation; I10 Essential (primary) hypertension; F32.9 Major depressive disorder, single episode, unspecified; E11.9 Type 2 diabetes mellitus without complications; I25.10 Atherosclerotic heart disease of native coronary artery without angina pectoris; Z79.84 Long term (current) use of oral hypoglycemic drugs; I95.1 Orthostatic hypotension; Z95.5 Presence of coronary angioplasty implant and graft; E78.00 Pure hypercholesterolemia, unspecified; Z79.811 Long term (current) use of aromatase inhibitors; E78.2 Mixed hyperlipidemia; F17.210 Nicotine dependence, cigarettes, uncomplicated
CPT/HCPCS: 33282; 36415; 36416; 70450; 71010; 80048; 80053; 82550; 82553; 83735; 84484; 85025; 93005; 93010; A4216; C1764; J1160; J1956; J2001; J2405; J3490; Q0162

== ENCOUNTER 2017-11-08 10:09 | Outpatient (CLI) | payer MEDICARE, OTHER ==
--- NOTE | 2017-11-09 14:21 | RAD ---
MODIFIED BARIUM SWALLOW: Evaluation was performed without the benefit of interpretation under real-time assessment. Reference speech pathology report for further details. HISTORY: Dysphagia following, other, unspecified, cerebrovascular disease. Dysphagia unspecified, feeding difficulties. FINDINGS: There is no evidence of laryngeal penetration or tracheal aspiration identified on the provided SCINE imaging. Ingested radiopaque contrast substances are appropriately passed from the oral cavity to t he imaged upper esophagus. A barium tablet was also swallowed. IMPRESSION: No laryngeal penetration or tracheal aspiration identified. POS: [facility]
== END 2017-11-08 10:10 | disposition home or self-care (01) ==
PROVIDERS: ATTEND Family Medicine
DX: I69.891 Dysphagia following other cerebrovascular disease (principal); R13.10 Dysphagia, unspecified; R63.3 Feeding difficulties
CPT/HCPCS: 74230

== ENCOUNTER 2018-01-09 07:43 | Outpatient (CLI) | payer MEDICARE, OTHER ==
--- NOTE | 2018-01-09 09:43 | CT ---
CT ABDOMEN AND PELVIS WITH IV CONTRAST: Date: 01-09-18 History: Breast cancer, weight loss. History of prior bilateral mastectomy as well as uterine scrappi ng. Comparison: None available. FINDINGS: There is partial visualization of bilateral prostheses and evidence of bilateral mastectomy. There is minimal hazy density at the right lung base which could be related to atelectasis. There is an irregular and slightly heterogeneously enhancing mass centered in the expected location o f the left adrenal gland. Normal appearing left adrenal gland is not seen. This mass appears to exten d into the region of the right mark of the diaphragm and slightly into the retrocrural region adjacen t to the left aspect of the proximal abdominal aorta. This mass also abuts both the pancreas and the left kidney. This mass is not thought to arise from the left kidney. Pancreatic mass, while a differe ntial consideration, also thought less likely and this likely represents a mass centered in this marquita on which abuts and possibly invades the tail of the pancreas. Just inferior to this location and inferior to the level of the left renal vein and artery, there is an additional slightly irregular, slightly heterogeneously enhancing mass as well in a left periaorti c location measuring 4 cm x 2.1 cm. The liver, spleen, right adrenal gland, bilateral kidneys, decompressed urinary bladder, and opacifie d bowel demonstrate a normal CT appearance. There is diffuse atherosclerotic vascular calcifications as well as essentric areas of atheroscleroti c plaque seen throughout the abdominal aorta and involving the iliac arteries bilaterally. There is e ctasia of the right common iliac artery. There is decreased attenuation seen within the endometrial canal with slight irregularity of the francesca ins of the endometrium which have a shaggy appearance. This is probably related to fluid within the e ndometrial canal, but this would be atypical in a patient of this age. Endometrial malignancy cannot be excluded based on this exam. No free fluid or fluid collection is seen in the abdomen or pelvis. No lytic or sclerotic osseous lesions are identified. There are mild degenerative changes in the spin e. IMPRESSION: 1. Irregular and slightly heterogeneously enhancing mass in the medial aspect of the left upper quadr ant in the expected location of the left adrenal gland. Just inferior to this lesion is mass like den sity in a left periaortic location. This mass is probably contiguous with the larger mass centered in the region of the left adrenal gland. The larger mass in the left upper quadrant does abut both the left kidney and the pancreas but is not thought to arise from the pancreas or the left kidney; althou gh, extension into the tail of the pancreas cannot be entirely excluded. This does appear to invade t he mark of the left hemidiaphragm and slightly extend into the retrocrural region. 2. Fluid in the endometrial canal with slight irregularity and shaggy appearance of the endometrial l ining as well. This is abnormal in a patient of this age and endometrial malignancy/uterine malignanc y cannot be excluded based on this exam. 3. Diffuse atherosclerotic vascular calcifications and plaque within the abdominal aorta and iliac ar teries. 4. Above findings discussed with Dr. Calero on 01-09-18 at 0847 hours. POS: OFF
[2018-01-09] MEDS ORDERED: Iopamidol 370 76% 100 ML VIAL ONE (09:59)
== END 2018-01-09 07:44 | disposition home or self-care (01) ==
LOC: CT 07:43
PROVIDERS: ATTEND Internal Medicine Hematology & Oncology
DX: Z08 Encounter for follow-up examination after completed treatment for malignant neoplasm (principal); R63.4 Abnormal weight loss; R19.09 Other intra-abdominal and pelvic swelling, mass and lump; I70.0 Atherosclerosis of aorta; Z85.3 Personal history of malignant neoplasm of breast
CPT/HCPCS: 74177

== ENCOUNTER → 2018-01-30 | Day surgery (SDC) | payer MEDICARE, OTHER ==
[2018-01-29 08:16] VITALS: BMI 16.6
[~2018-01-30] MED LIST: FLU VACC TS2017-18 (>65YR) 0.5 ML SYRINGE IM ONE; Fentanyl 100 MCG/2 ML VIAL ONE; Iopamidol 370 76% 100 ML VIAL ONE; Midazolam HCl 2 mg/2 ml Vial ONE
[2018-01-30 09:19] LABS: #Eosinphils 0.2 thou/uL (0.0-0.7); #Lymphocytes 2.5 thou/uL (1.20-3.40); #Monocytes 0.5 thou/uL (0.11-0.59); #Neutrophils 4.1 thou/uL (1.40-6.50); %Basophils 0.5 % (0.0-1.0); %Lymphocytes 33.9 % (21.0-51.0); %Monocytes 7.2 % (0.0-10.0); %Neutrophils 55.4 % (42.0-75.0); Hemoglobin 13.5 g/dL (12.0-16.0); Mean Corpuscular HGB CONC 32.4 g/dL (32.0-36.0); Mean Corpuscular Hemoglobin 33.6 pg (27.0-31.0); Mean Platelet Volume 7.8 fL (7.4-10.4); Platelet Count 250 thou/uL (130-400); Red Blood Cell (RBC) Count 4.01 mill/uL (4.20-5.40); White Blood Cell (WBC) Count 7.5 thou/uL (4.8-10.8)
[2018-01-30 09:37] LABS: PTT 38.1 SEC (22.9-36.1)
[2018-01-30 10:24] VITALS: BP 125/67; TEMP 98.4
--- NOTE | 2018-01-30 14:44 | CT ---
CT GUIDED BIOPSY OF LEFT ADRENAL MASS: 01/30/2018 HISTORY: A 67-year-old female with a history of both breast cancer and cervical cancer, with a left adrenal ne oplastic tumor mass. TECHNIQUE: Signed informed consent was obtained. The patient's upper abdomen was scanned with the patient in the left lateral decubitus position, after IV injection of 75 mL of Isovue-370, in order to locate the l eft renal vein and left renal artery. The skin of the lower back, to the left of midline, was preppe d and draped in the usual sterile fashion, and a 25 gauge needle was used to apply buffered Lidocaine superficially. A 22 gauge spinal needle was used to incrementally apply additional buffered Lidocai ne, deeply, under step CT guidance. Finally, a 19 gauge introducer needle was incrementally advanced , under step CT guidance, in tandem with the spinal needle. The spinal needle was removed and the 19 gauge introducer needle was continually advanced incrementally, until its tip reached the posterior edge of the left adrenal mass, at the L1 level, traversing the narrow space between the left kidney a nd the L1 vertebral body. The stylet was removed from the introducer needle. The 20 gauge biopsy ne edle was placed, in a coaxial fashion, through the introducer needle, and the gun was fired with a th row of 2.2 cm, yielding a core tissue sample, which was smeared on a slide and given to the pathologi st, Dr. Juanito Wang, who, upon viewing the touch slide preparation, gave a preliminary report of adeq uacy (scant cells). A second core tissue sample was obtained, by firing the gun again, and this samp le was placed directly into formalin. The introducer needle was removed. The patient tolerated the procedure well. A post biopsy scan was performed, showing no hematoma. There was no complication. IMPRESSION: Technically successful 20 gauge core biopsy of left adrenal neoplastic tumor mass x 2. POS: [facility]
== END ==
LOC: CT 08:30
PROVIDERS: ATTEND Internal Medicine Hematology & Oncology
PROC: 0GB23ZX Excision of Left Adrenal Gland, Percutaneous Approach, Diagnostic (ICD-10-PCS; principal; 2018-01-30)
DX: C79.72 Secondary malignant neoplasm of left adrenal gland (principal); C50.911 Malignant neoplasm of unspecified site of right female breast; C53.9 Malignant neoplasm of cervix uteri, unspecified; I10 Essential (primary) hypertension; I25.10 Atherosclerotic heart disease of native coronary artery without angina pectoris; E78.00 Pure hypercholesterolemia, unspecified; E03.9 Hypothyroidism, unspecified; K21.9 Gastro-esophageal reflux disease without esophagitis; E11.51 Type 2 diabetes mellitus with diabetic peripheral angiopathy without gangrene; M79.7 Fibromyalgia; G47.33 Obstructive sleep apnea (adult) (pediatric); F41.9 Anxiety disorder, unspecified; F32.9 Major depressive disorder, single episode, unspecified; F17.210 Nicotine dependence, cigarettes, uncomplicated; Z17.0 Estrogen receptor positive status [ER+]; Z88.0 Allergy status to penicillin; Z88.1 Allergy status to other antibiotic agents; Z88.8 Allergy status to other drugs, medicaments and biological substances; Z79.82 Long term (current) use of aspirin; Z79.899 Other long term (current) drug therapy; Z90.11 Acquired absence of right breast and nipple; Z98.890 Other specified postprocedural states
CPT/HCPCS: 36415; 74160; 77002; 85025; 85610; 85730; 88305; 88333; 88342; J2250; J3010

== ENCOUNTER 2018-02-13 12:29 | Outpatient (CLI) | payer MEDICARE, OTHER ==
[2018-02-13 13:57] LABS: #Eosinphils 0.1 thou/uL (0.0-0.7); #Lymphocytes 2.2 thou/uL (1.20-3.40); #Monocytes 0.5 thou/uL (0.11-0.59); #Neutrophils 4.1 thou/uL (1.40-6.50); %Basophils 0.6 % (0.0-1.0); %Eosinophils 1.7 % (0.0-10.0); %Lymphocytes 31.4 % (21.0-51.0); %Monocytes 7.3 % (0.0-10.0); Hemoglobin 13.6 g/dL (12.0-16.0); Mean Corpuscular HGB CONC 32.8 g/dL (32.0-36.0); Mean Platelet Volume 7.4 fL (7.4-10.4); Platelet Count 280 thou/uL (130-400); RBC Distribution Width 12.4 % (11.5-14.5)
[2018-02-13 14:21] LABS: Anion Gap 10 mmol/L (10-20); BUN (Urea Nitrogen) 23 mg/dL (9.8-20.1); Calc. Creatinine Clearance 0 mL/min (70-130); Calcium 10.8 mg/dL (7.8-10.44); Carbon Dioxide 29 mmol/L (23-31); Chloride 106 mmol/L (98-107); Estimated GFR-MDRD 79; Glucose 100 mg/dL (80-115); Potassium 4.1 mmol/L (3.5-5.1); Sodium 141 mmol/L (136-145)
--- NOTE | 2018-02-14 06:22 | EKG ---
Test Reason : Blood Pressure : / mmHG Vent. Rate : 067 BPM Atrial Rate : 067 BPM P-R Int : 214 ms QRS Dur : 086 ms QT Int : 402 ms P-R-T Axes : 084 082 077 degrees QTc Int : 424 ms Sinus rhythm with 1st degree A-V block Otherwise normal ECG When compared with ECG of 19-SEP-2017 11:55, Sinus rhythm has replaced Atrial flutter T wave inversion no longer evident in Inferior leads Confirmed by CLEMENT MORRELL ([id number]) on 02/14/2018 5:55:23 AM Referred By: [facility] Confirmed By:CLEMENT MORRELL
== END 2018-02-13 12:30 | disposition home or self-care (01) ==
LOC: LABBT 12:29
PROVIDERS: ATTEND Specialist
DX: Z01.818 Encounter for other preprocedural examination (principal); C50.919 Malignant neoplasm of unspecified site of unspecified female breast
CPT/HCPCS: 80048; 85025; 93005; 93010

== ENCOUNTER 2018-02-19 08:32 | Day surgery (SDC) | payer MEDICARE, OTHER ==
[2018-02-13 13:37] VITALS: BMI 22.0
[2018-02-19] MEDS ORDERED: Ketorolac Tromethamine 30 MG/ML VIAL ONE (09:05)
[2018-02-19] MEDS ORDERED: CEFAZOLIN/Water 2 GM/20 ML SYRINGE ONE (09:05)
[2018-02-19] MEDS ORDERED: Lidocaine 1% (PF) 30 ML VIAL ONE (09:12)
[2018-02-19] MEDS ORDERED: Bupivacaine/Epinephrine 0.25% 30 ML VIAL ONE (09:12)
[2018-02-19] MEDS ORDERED: Midazolam HCl 2 mg/2 ml Vial ONE (09:27)
[2018-02-19] MEDS ORDERED: Fentanyl 100 MCG/2 ML VIAL ONE (09:27)
--- NOTE | 2018-02-19 12:18 | RAD ---
PORTABLE CHEST: Date: 02/19/18 PROVIDED CLINICAL HISTORY: MediPort insertion. FINDINGS: Comparison made with the study dated 09/13/17. Cardiac and mediastinal silhouettes are unchanged in appearance. Right subclavian implanted port is n oted with tip overlying expected location of SVC. No focal consolidation, pleural fluid, or pneumotho rax apparent. Implanted loop recorded device overlies the left chest. Vascular calcifications seen. IMPRESSION: Post implanted port placement without evidence for complication. POS: [facility]
[2018-02-19] MEDS ORDERED: Lidocaine 1% PF 5 ML VIAL ONE (16:51)
[2018-02-19] MEDS ORDERED: PROPOFOL 200 MG/20 ML VIAL ONE (16:51)
--- NOTE | 2018-02-19 21:23 | OP ---
DATE OF PROCEDURE: 02/19/2018 PREOPERATIVE DIAGNOSIS: Metastatic cancer to adrenal gland. POSTOPERATIVE DIAGNOSIS: Metastatic cancer to adrenal gland. OPERATION PERFORMED: Placement of right subclavian low profile power compatible MediPort. SURGEON: Garry Ndiaye M.D. ANESTHESIA: General with laryngeal mask airway. INDICATIONS: The patient is a 67-year-old white female. She is cachectic in appearance secondary to a weight loss of 70 pounds down to her current weight of 89 pounds. She requires MediPort placement for chemotherapy administration. Her cachexia is felt to make her a high risk for pneumothorax give n her severe weight loss and her long-term smoking history. DESCRIPTION OF OPERATION: Informed consent was obtained. The patient was taken to the operating jennifer m where general anesthesia was obtained with the patient in supine position. Chest was prepped with ChloraPrep and draped in sterile fashion. Ultrasound was utilized to evaluate the subclavian anatomy in the right upper chest. I was able to visualize the artery and the vein. The vein was in the usu al anatomic position, somewhat inferior to the artery. With the patient in significant Trendelenburg position, the vein dilated to a point that was felt to be accessible. Local anesthetic was infiltrated using 1% lidocaine. Large gauge needle was advanced on the initial pass into the subclavian vein using the ultrasound guidance. The guidewire was advanced into the vei n and fluoroscopically confirmed to enter the superior vena cava. The needle was removed, additional local anesthetic was infiltrated and skin incision was created based on needle insertion site. Subc utaneous pocket was dissected. Introducer dilator was passed over the guidewire under direct vision. The catheter was passed through the introducer, which was removed in the usual peel-apart fashion. Catheter tip was positioned at the atrial caval junction and the catheter was trimmed to appropriate length and secured to the locking hub of the MediPort. The port was secured to the pectoral fascia with 2 interrupted sutures of 3-0 Prolene. The wound was closed in layers with 3-0 and 4-0 Monocryl. Dermabond was placed externally. The port aspirated blood freely and was flushed with heparinized saline. Final images revealed that the port and catheter were in good position. There were no compl ications. The patient tolerated the procedure well and was taken to the recovery room in stable cond ition.
== END 2018-02-19 12:45 | disposition home or self-care (01) ==
LOC: SDC 08:32
PROVIDERS: ATTEND Specialist
PROC: 02HV33Z Insertion of Infusion Device into Superior Vena Cava, Percutaneous Approach (ICD-10-PCS; principal; 2018-02-19)
PROC: B518ZZA Fluoroscopy of Superior Vena Cava, Guidance (ICD-10-PCS; 2018-02-19)
DX: C79.72 Secondary malignant neoplasm of left adrenal gland (principal); C50.911 Malignant neoplasm of unspecified site of right female breast; I10 Essential (primary) hypertension; E11.9 Type 2 diabetes mellitus without complications; I25.10 Atherosclerotic heart disease of native coronary artery without angina pectoris; F17.210 Nicotine dependence, cigarettes, uncomplicated; Z17.0 Estrogen receptor positive status [ER+]; Z79.82 Long term (current) use of aspirin; Z79.52 Long term (current) use of systemic steroids; Z79.02 Long term (current) use of antithrombotics/antiplatelets; Z79.810 Long term (current) use of selective estrogen receptor modulators (SERMs); Z79.899 Other long term (current) drug therapy; Z88.0 Allergy status to penicillin; Z88.8 Allergy status to other drugs, medicaments and biological substances
CPT/HCPCS: 36561; 71045; C1788; J0131; J1642; J1885; J2001; J2250; J2704; J3010

== ENCOUNTER 2018-04-30 08:14 | Outpatient (CLI) | payer MEDICARE, OTHER ==
--- NOTE | 2018-04-30 11:52 | CT ---
CONTRAST ENHANCED CT ABDOMEN AND PELVIS: Date: 04-30-18 Comparison: 01-09-18 Technique: Contrast enhanced CT images of the abdomen and pelvis were obtained after the administrati on of IV and oral contrast. FINDINGS: Bilateral breast reconstruction prosthesis are seen. The lung bases demonstrate an area of scarring seen in the posterior aspect of the left lower lobe. The liver and spleen are unremarkable. There is a 2.7 x 3.7 cm mass medial to the pancreatic tail adj acent to the left adrenal gland. This has decreased in size compared to the previous exam on 01-09-18 w here it measured 4.9 x 3.5 cm. The lesion appears to abut the left mark of the diaphragm. It appears to be medial to the pancreatic tail. The abdominal aorta demonstrates atherosclerotic changes with ca lcified and noncalcified plaques. The common iliac arteries and external iliac arteries are also calc ified. No significant evidence of periaortic lymphadenopathy seen. Degenerative changes are seen in the lumbar spine facets. Some heterogeneity is seen in the uterine c avity, not as well as visualized on today's exam compared to the previous CT where there was more gio ar distinct fluid in the uterine canal. Decreasing left retroperitoneal periaortic mass. No other newly developed lesion is seen. POS: [facility]
[2018-04-30] MEDS ORDERED: Iopamidol 370 76% 100 ML VIAL ONE (13:04)
== END 2018-04-30 08:15 | disposition home or self-care (01) ==
LOC: CT 08:14
PROVIDERS: ATTEND Internal Medicine Hematology & Oncology
DX: R19.00 Intra-abdominal and pelvic swelling, mass and lump, unspecified site (principal); C50.919 Malignant neoplasm of unspecified site of unspecified female breast
CPT/HCPCS: 74177; 82565

== ENCOUNTER 2018-07-30 08:59 | Outpatient (CLI) | payer MEDICARE, OTHER ==
--- NOTE | 2018-07-30 12:14 | CT ---
CT ABDOMEN WITH IV CONTRAST: Date: 07/30/18 INDICATION: History of breast malignancy with left-sided back pain. COMPARISON: Prior CT of the abdomen and pelvis dated 04/30/18 and 01/09/18. FINDINGS: There has been interval development of a small left pleural effusion. Emphysematous change of both polina ng bases is stable. There is stable elevation of the left hemidiaphragm. The heterogenous but predominantly hypodense mass involving the left adrenal gland has decreased in s ize from the most recent comparison dated 04/30/18. The mass lesion on image 18 of series 2 and image 57 of the coronal series measures 3.0 x 2.2 x 3.6 cm in size. The lesion on the most recent comparis on CT previously measured 3.7 x 2.7 x 4.[address] planes. The lesion demonstrates stable changes of invasion of the adjacent retroperitoneal structures, particularly the posterior aspect of the pancreatic tail. The lesion does abut the superior margin of the left kidney and extends medially to abut the left diaphragmatic crura and left aspect of the aorta. The liver, spleen, right adrenal gland, and kidneys otherwise appear within normal limits. There are moderate calcifications noted involving the abdominal aorta. No pathologically enlarged lymph nodes are evident. No definite acute osseous abnormality is evident. There is scattered degenerative change. There is di ffuse osteopenia. IMPRESSION: 1. Interval decrease in size of the left adrenal metastatic lesion. Findings likely reflect response to therapy. 2. Interval development of small left pleural effusion. This is nonspecific. 3. Stable emphysema. 4. Other stable diffuse osteopenia. 5. Other chronic findings as above. POS: [facility]
== END 2018-07-30 09:00 | disposition home or self-care (01) ==
LOC: CT 08:59
PROVIDERS: ATTEND Internal Medicine Hematology & Oncology
DX: Z08 Encounter for follow-up examination after completed treatment for malignant neoplasm (principal); Z85.3 Personal history of malignant neoplasm of breast; M85.80 Other specified disorders of bone density and structure, unspecified site; J43.9 Emphysema, unspecified; J90 Pleural effusion, not elsewhere classified; E27.8 Other specified disorders of adrenal gland; I70.0 Atherosclerosis of aorta
CPT/HCPCS: 74160; 82565

== ENCOUNTER 2019-01-07 08:55 | Outpatient (CLI) | payer MEDICARE, OTHER ==
--- NOTE | 2019-01-07 12:45 | CT ---
CT ABDOMEN WITH CONTRAST CT PELVIS WITH CONTRAST: 01/07/2019 HISTORY: A 67-year-old female with a history of breast cancer and cervical cancer. Followup of left adrenal m ass. COMPARISON: 07/30/2018 TECHNIQUE: IV injection of iodinated contrast media: Isovue-300 70 mL. Oral contrast media: Administered. FINDINGS: The left adrenal mass has increased in size from previous dimensions of approximately 3.5 x 3 x 2 cm, to current dimensions of 5 x 4 x 4 cm. It has irregular, lobulated margins; and has heterogeneous e nhancement with extensive central areas of low attenuation consistent with necrosis. As previously m entioned, there is a small component that invades the tail of the pancreas (axial image 21 of 82, ser ies 2). It abuts the upper cortical surface of the left kidney, and the medial aspect of the spleen. Now, the medial aspect of the spleen has an approximately 4 x 3.5 x 2.4 cm region of moderately low attenuation, representing a change compared to the previous CT. There is no splenomegaly. Again no willis is the chronically elevated left hemidiaphragm, with associated shift of the stomach to the left, abutting the undersurface of the elevated left hemidiaphragm. Fusiform dilation of the infrarenal a bdominal aorta to a cross-sectional diameter of 2.7 x 2.5 cm, with calcified and noncalcified atheros clerotic plaque. No hydronephrosis. The right adrenal and liver are normal. Lack of visceral fat. No small bowel dilation. No ascites. Pelvic relaxation. No other abnormality of the urinary bladd er. No signs of colonic diverticulitis. Tiny left pleural effusion, similar in size to the previous CT. IMPRESSION: 1. Significant interval growth in the now moderately large left adrenal malignant neoplasm (presumab ly metastatic). 2. A moderate-sized region of relatively low attenuation involving the medial aspect of the spleen. Uncertain whether this represents hypoperfusion, infarction, or invasion by neoplasm. Hypoperfusion is slightly favored. JANEEN Fitzpatrick POS: [facility]
== END 2019-01-07 08:56 | disposition home or self-care (01) ==
LOC: SCSCT 08:55
PROVIDERS: ATTEND Internal Medicine Hematology & Oncology
DX: C50.919 Malignant neoplasm of unspecified site of unspecified female breast (principal); R19.07 Generalized intra-abdominal and pelvic swelling, mass and lump; C74.92 Malignant neoplasm of unspecified part of left adrenal gland
CPT/HCPCS: 74176; 82565

== ENCOUNTER 2019-01-20 14:32 | Outpatient (CLI) | payer MEDICARE, OTHER | END 2019-01-20 14:33 | disposition home or self-care (01) | LOC: ULT 14:32 | PROVIDERS: ATTEND Internal Medicine Hematology & Oncology | DX: Z51.11 Encounter for antineoplastic chemotherapy (principal); C50.919 Malignant neoplasm of unspecified site of unspecified female breast; I08.1 Rheumatic disorders of both mitral and tricuspid valves; Z79.899 Other long term (current) drug therapy | CPT/HCPCS: 93306 ==

== ENCOUNTER 2019-04-01 15:51 | Inpatient (IN) | payer MEDICARE, OTHER ==
[2019-04-01] MEDS ORDERED: Cefepime 2 GM VIAL ONE (16:08)
--- NOTE | 2019-04-01 17:14 | RAD ---
PORTABLE CFHEST ONE VIEW: 04/01/19 at 4:39 p.m. HISTORY: Fever. Weakness. FINDINGS: Comparison is made to exam of 02/19/18. Right sided Port-A-Cath remains in place. Loop recorder device overlying the left chest is again seen . The heart size is normal. The aorta is tortuous. The lungs are well expanded without lobar consoli dation, pneumothoraces or pleural effusions. IMPRESSION: No acute process. POS: [facility]
[2019-04-01 17:28] LABS: Anisocytosis SLIGHT = 6-15 cells (100X) (0-5/hpf); Elliptocytes SLIGHT = 2-5 cells (100X) (0-1/hpf); Hemoglobin 8.3 g/dL (12.0-16.0); MDiff Complete? YES; Mean Corpuscular HGB CONC 34.1 g/dL (32.0-36.0); Mean Corpuscular Volume 99.5 fL (78.0-98.0); Mean Platelet Volume 10.3 fL (7.4-10.4); Platelet Count 59 thou/uL (130-400); Platelet Morphology Comment Appears Decreased; Poikilocytosis SLIGHT = 6-15 cells (100X) (0-5/hpf); RBC Distribution Width 14.5 % (11.5-14.5); Red Blood Cell (RBC) Count 2.43 mill/uL (4.20-5.40); White Blood Cell (WBC) Count 0.4 thou/uL (4.8-10.8)
[2019-04-01 17:40] LABS: CKMB 0.2 ng/mL (0-6.6)
[2019-04-01 17:59] LABS: ALT (SGPT) Less than 7 U/L (8-55); AST (SGOT) 10 U/L (5-34); Albumin 3.2 g/dL (3.4-4.8); Alkaline Phosphatase 71 U/L (40-150); Anion Gap 15 mmol/L (10-20); BUN (Urea Nitrogen) 21 mg/dL (9.8-20.1); Bilirubin, Total 0.8 mg/dL (0.2-1.2); CK (CPK) 13 U/L (29-168); Calc. Creatinine Clearance 0 mL/min (70-130); Calcium 10.4 mg/dL (7.8-10.44); Carbon Dioxide 24 mmol/L (23-31); Chloride 106 mmol/L (98-107); Estimated GFR-MDRD 73; Globulin 2.5 g/dL (2.4-3.5); Glucose 135 mg/dL (80-115); Lipase Less than 4 U/L (8-78); Protein, Total 5.7 g/dL (6.0-8.3); Sodium 142 mmol/L (136-145)
[2019-04-01 18:08] LABS: Potassium 2.9 mmol/L (3.5-5.1)
[2019-04-01] MEDS ORDERED: Acetaminophen 500 MG TAB ONE (19:18)
[2019-04-01] MEDS ORDERED: Potassium Chloride 20 MEQ TAB ONE (19:18)
[2019-04-01 20:50] LABS: Bilirubin Negative (Negative); Blood, Urine Negative (Negative); Clarity CLOUDY (Clear); Glucose, Urine (Dipstick) Negative (Negative); Leukocyte Negative (Negative); Nitrite Negative (Negative); Protein, Urine (Dipstick) 100 mg/dL (Neg-Trace); Specific Gravity, Urine 1.021 (1.002-1.036); Urobilinogen 0.2 mg/dL (0.2-1.0)
[2019-04-01 20:56] LABS: Bacteria/HPF None Seen HPF (None Seen); Hyaline Casts/LPF 0-3 HYALINE CAST LPF (0-3 Hyaline); RBC/HPF 0-3 HPF (0-3); Squamous Epithelial 0-3 HPF (0-3); WBC/HPF 0-3 HPF (0-3)
[2019-04-01] MEDS ORDERED: Acetaminophen 650 MG Suppository PR PRN (21:14)
[2019-04-01 21:15] LABS: Lactic Acid 1.1 mmol/L (0.5-2.2)
[2019-04-01] MEDS ORDERED: Sodium Chloride 0.9% 1,000 ML IV SCH (21:30)
[2019-04-01 23:41] VITALS: BMI 15.2
[2019-04-02] MEDS: Cefepime 2 GM in Sodium Chloride 0.9% 100 ML IVPB SCH ×4 (00:43→23:49)
[2019-04-02] MEDS ORDERED: HumaLOG 300 UNITS/3 ML VIAL SC PRN (01:20)
[2019-04-02] MEDS ORDERED: Dextrose 5% in Water 1,000 ML IV PRN (01:20)
[2019-04-02] MEDS ORDERED: Dextrose 50% Abboject 50 ML SYRINGE SLOW IVP PRN (01:20)
[2019-04-02] MEDS ORDERED: Cyclobenzaprine 10 MG TAB PO PRN (01:21)
[2019-04-02] MEDS ORDERED: Nitroglycerin 0.4 MG TAB (25 Tab Bottle) SL PRN (01:21)
[2019-04-02] MEDS ORDERED: Dronabinol 2.5 MG CAP PO PRN ×2 (01:21→20:46)
--- NOTE | 2019-04-02 02:19 | HP ---
PRIMARY CARE DOCTOR: Primary care doctor for this patient is Dr. Robi Wick. CODE STATUS: The code status for this patient is full code. TIME OF EVALUATION: 8:50 p.m. CHIEF COMPLAINT: Weakness. HISTORY OF PRESENT ILLNESS: This is a 68-year-old female patient, past medical history of end-stage breast cancer; diabetes, type 2; and hypertension, came to the hospital after having severe weakness. The symptoms have been present for the past few days and have been gradually getting worse. The patient is cachectic, the heart rate was in the rate of 150, initially in AFib. Patient has complete lack of appetite, not eating or drinking in the past 3 days. Patient presented with fever of 101, associated with cough. Symptoms are severe. No clear triggers. No alleviating factors. REVIEW OF SYSTEMS: CONSTITUTIONAL: Patient has fever, chills, and generalized weakness. RESPIRATORY: Patient has cough, sputum production, shortness of breath. CARDIOVASCULAR: Patient has no chest pain. Patient has palpitations. GASTROINTESTINAL: Patient has nausea. No vomiting, diarrhea, or abdominal pain. USPS LETTER CARRIER: No dizziness, headache, or feeling lightheaded. GENITOURINARY: No burning on urination. EXTREMITIES: No leg swelling. All other systems were reviewed and negative, except for the findings mentioned above. PAST MEDICAL HISTORY: As mentioned in the HPI. PAST SURGICAL HISTORY: Bilateral mastectomy and heart stent. PSYCHIATRIC HISTORY: No previous psych history. SOCIAL HISTORY: No alcohol, no drugs, and no smoking history. FAMILY HISTORY: Reviewed and noncontributory for current presentation. KNOWN ALLERGIES: Erythromycin, penicillin, and steroids. REPORTED MEDICATIONS: 1. Multaq. 2. Crestor. 3. Mirtazapine. 4. Plavix. 5. Tamoxifen. 6. Aspirin. 7. [place]-3. 8. Vitamin D3. 9. Nitrostat. 10. Venlafaxine. 11. Midodrine. 12. Fludrocortisone. 13. Cyclobenzaprine. 14. Marinol. PHYSICAL EXAMINATION: VITAL SIGNS: On presentation, blood pressure 94/35, heart rate 102, respiratory rate was 16, temperature 100.7, and oxygen saturation was 98% on room air. GENERAL APPEARANCE: The patient is alert, oriented, in no acute distress. Patient is cachectic. HEENT: Eyes, normal conjunctivae. Dry oral mucosa. Anicteric. No JVD. RESPIRATORY: Bilateral air entry. No rales. No wheezes. Symmetric expansion. CARDIOVASCULAR: Normal rate, regular rhythm. No murmurs. No gallop. No edema noted on my examination. However, on presentation, patient was tachycardic. ABDOMEN: Soft, normal bowel sounds. MUSCULOSKELETAL: Baseline range of motion and strength. No tenderness. SKIN: Warm, intact. No pallor. No rash. No redness. Peripheral pulses are present. Capillary refill seems to be intact. NEUROLOGIC: No evidence of any new focal weakness. Cranial nerves seem to be intact. PSYCH: Patient is in good mood. No anxiety. Optimal judgment. IMAGING: EKG was reviewed. The patient has normal sinus rhythm with a rate of 91 with [place] 158, QRS 82, QT corrected 472, nonspecific T-wave abnormalities with prolonged QT. Chest x-ray was reviewed. The patient has no acute process. LABORATORY DATA: Reviewed. The patient has white count of 0.4, hemoglobin 8.3, MCV 99.5, and platelet count 59. Chemistry; sodium 142, potassium 2.9, chloride 106, carbon dioxide 24, anion gap 15, BUN 21, creatinine 0.78, GFR 73, and glucose 135. Lactic acid 2.1, calcium 10.4, and total bilirubin 0.8. LFTs were negative. CK 13 and troponin 0.061. Serum total protein 5.7, albumin 3.2. Lipase was less than 4. ASSESSMENT AND PLAN: The patient will be placed in the hospital for the following medical problems. 1. End-stage breast cancer. She is receiving treatment as outpatient. 2. Pancytopenia, likely secondary to cancer treatment, we will monitor, the patient has fever. This places the patient at risk of complication due to wound suppression. 3. Systemic inflammatory response syndrome. There is no significant source for sepsis, however, patient presented with fever and tachycardia and patient is immunosuppressed. The patient has been started on antibiotics, follow cultures, we will adjust as per sensitivity. 4. Hypokalemia with potassium of 2.9. We will replace electrolytes as needed. This problem is moderate. She was given potassium already at 8 p.m. 40mEq. 5. Hyperglycemia due to uncontrolled diabetes. The patient will be placed on a sliding scale for optimal control. Reconcile home medications. 6. Controlled hypertension. Reconcile home medications. We will not treat aggressively since patient is septic and immunosuppressed and high risk for septic shock and complication with sepsis. 7. Deep venous thrombosis prophylaxis. UNYQ. Job ID: [id number]
[2019-04-02 05:38] LABS: White Blood Cell (WBC) Count 0.3 thou/uL (4.8-10.8)
[2019-04-02 05:57] LABS: Anion Gap 13 mmol/L (10-20); BUN (Urea Nitrogen) 22 mg/dL (9.8-20.1); Calc. Creatinine Clearance 47 mL/min (70-130); Calcium 10.5 mg/dL (7.8-10.44); Carbon Dioxide 22 mmol/L (23-31); Chloride 110 mmol/L (98-107); Estimated GFR-MDRD Greater than 90; Glucose 85 mg/dL (80-115); Potassium 3.2 mmol/L (3.5-5.1); Sodium 142 mmol/L (136-145)
[2019-04-02 06:39] LABS: Hemoglobin 8.2 g/dL (12.0-16.0); Mean Corpuscular HGB CONC 32.4 g/dL (32.0-36.0); Mean Platelet Volume 10.2 fL (7.4-10.4); Platelet Count 36 thou/uL (130-400); RBC Distribution Width 14.6 % (11.5-14.5); Red Blood Cell (RBC) Count 2.49 mill/uL (4.20-5.40)
[2019-04-02 07:36] LABS: MDiff Complete? YES; Ovalocytes SLIGHT = 2-5 cells (100X) (0-1/hpf); Platelet Morphology Comment Appears Decreased; Polychromasia SLIGHT = 2-3 cells (100X) (0-2/hpf)
[2019-04-02] MEDS ORDERED: Aspirin 81 mg Enteric Coated Tablet PO SCH (09:00)
[2019-04-02] MEDS ORDERED: Clopidogrel Bisulfate 75 MG TAB PO SCH (09:00)
[2019-04-02] MEDS: Digoxin 0.125 MG TAB PO SCH (09:05)
[2019-04-02] MEDS: Midodrine HCl 5 MG TAB PO SCH ×3 (09:06→17:02)
[2019-04-02] MEDS: Fish Oil 1,000 MG CAP PO SCH (09:06)
[2019-04-02] MEDS: Dronedarone HCl 400 MG TAB PO SCH ×2 (09:07→17:03)
[2019-04-02] MEDS: Rosuvastatin 20 MG TAB PO SCH (09:08)
[2019-04-02] MEDS: Venlafaxine HCl XR 150 MG CAP PO SCH (09:08)
[2019-04-02] MEDS: Fludrocortisone Acetate 0.1 MG TAB PO SCH (09:08)
[2019-04-02] MEDS ORDERED: Potassium Chloride 20 MEQ TAB PO SCH (10:30)
[2019-04-02] MEDS ORDERED: Iopamidol 370 76% 100 ML VIAL ONE (11:27)
[2019-04-02] MEDS ORDERED: Magnesium Sulfate 2 GM in Sodium Chloride 0.9% 100 ML IVPB SCH (13:45)
[2019-04-02] MEDS ORDERED: Magnesium 2 GM/50 ML 2 GM in Premix Bag 1 BAG IVPB SCH (14:00)
--- NOTE | 2019-04-02 14:14 | PRG ---
DATE OF SERVICE: 04/02/2019 HISTORY OF PRESENT ILLNESS: Assuming care for hospitalist team, as I am the PCP of this patient, agree with consultation of Palliative Care and Hematology/Oncology. The patient is undergoing active treatment for recurrence of metastatic breast cancer disease. Per the patient's spouse, they have recently modulated their chemotherapy approximately 2 to 3 weeks ago. The patient was found to have neutropenic fever. Continues to have low-grade temperatures today. Last temperature was 100.1. The patient states she feels a little bit better after replacement of potassium; however, she still feels weak, had fatigue where she could not go more than 6 steps prior to hospitalization. The patient has a long-standing history of orthostatic hypotension, which she had multiple falls until she got placed on fludrocortisone daily. She was also supported with midodrine at one point in time. She has not had any falls since that therapy began. The patient has been tolerating IV antibiotics well. Current urinalysis is not concerning for infection. Blood culture is currently negative at 1 day of growth. Chest x-ray without signs or symptoms of pneumonia. Abdomen and pelvis CT read is pending. The patient just returned from the time of exam. More formal review of vital signs, temperature of 100.1, pulse of 84, respiratory rate of 14, oxygen saturation of 96% on room air, blood pressure of 103/60. LABORATORY DATA: Review of laboratory work this morning, white blood cell count of 0.3, neutrophil percent is not reported, hemoglobin of 8.2, MCV of 102. Potassium trending up from 2.9 to 3.2, magnesium low at 1.5, sodium of 142, CO2 of 22, creatinine of 0.63. Albumin on admission was 3.2, lipase of less than 4, calcium of 10.4, glucose last was 115. PHYSICAL EXAMINATION: GENERAL: The patient is alert and oriented. Temporal wasting is noted. HEENT: The patient is without hair. Oral mucosa is moist. NECK: Supple. HEART: Regular rate and rhythm at time of exam. No murmurs auscultated. Port not currently in use. IV to left forearm. Ecchymosis scattered over bilateral extremities. LUNGS: Clear to auscultation bilaterally. No rubs, wheezes, rhonchi, or rales. ABDOMEN: Soft, minimally tender. No rebound or guarding. EXTREMITIES: Lower extremities without cyanosis or edema. NEUROLOGIC: No focal deficits. Speech is normal. Alert and oriented x3. The patient is overall largely cachectic. The patient is weighing in at 78 pounds. Speaking with family at bedside and the patient, she has struggled with coughing and drinking, although is not producing any sputum at this point in time. Last saw Speech Therapy approximately a year ago with evaluation during syncopal episodes and orthostatic syncope as described above. 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 Continuing on cefepime and vancomycin. Continuing on midodrine, fludrocortisone, as well as Decadron. Continuing on the patient's statin, Plavix, SCDs, aspirin. Follow up on magnesium replacement, potassium replacement. We will get dietary and speech therapy to come by and assess the patient for cachexia secondary to chemotherapy and cancer recommending likely need for protein shake supplementation. Follow up on vancomycin trough order tomorrow. We will follow up on any recommendations by Hematology/Oncology for any additional means to boost the patient's white blood cell count. The patient remains on neutropenic precautions otherwise. Job ID: [id number]
--- NOTE | 2019-04-02 14:52 | CT ---
ABDOMEN CT WITH CONTRAST PELVIC CT WITH CONTRAST: Date: 04/02/19 HISTORY: Metastatic breast cancer. COMPARISON: 01/07/19, 05/02/18, 07/30/18. FINDINGS: ABDOMEN CT: Small left-sided effusion. Chronic changes in the lung parenchyma. Normal heart size. No significant pericardial fluid. The visualized thoracic aorta has a normal caliber. There is eccentric thrombus wi th short segment moderate narrowing of the infrarenal aorta. Extensive atherosclerosis is noted at th e origin of the right renal artery. Portal vein is patent. Right adrenal gland and both kidneys have appropriate enhancement. Abnormal attenuation is again noted in the left upper quadrant, which is of possible adrenal origin. However, there is abnormal attenuation extending into the tail of the pancreas, as well as the medial aspect of the spleen. Mass has heterogeneous peripheral enhancement with central hypoattenuation sug gesting necrosis. Mass currently measures 3.5 x 3.4 cm. Multiple varices are noted along the stomach. The stomach is displaced towards the left side. Limited evaluation of the alimentary canal by the lack of oral contrast. There does appear to be hype remia involving multiple bowel loops with bowel wall thickening. Correlate for an infectious/inflamma tory enteritis. Ileocecal junction is grossly unremarkable. Suggestion of a normal caliber appendix. Fecal material in a nondistended, nondilated colon. There is abnormal attenuation of the medial aspect of the spleen, currently measuring 2.5 x 2.2 cm (p reviously measuring 3.4 x 2.[address] cm). CT PELVIS: Distended urinary bladder. Uterus and adnexal structures are unremarkable. Distal sigmoid colon and r ectal mucosal prominence is noted. IMPRESSION: 1. Redemonstration of a complex mass in the left upper quadrant which may be of adrenal origin. This mass has not significantly changed in size. Currently, the mass measures 3.4 x 3.5 cm (previously me asuring approximately 3.9 x 3.7 cm). There is stable involvement of the adjacent tail of the pancreas and medial aspect of the spleen. 2. Abnormal mucosal prominence and hyperemia of the bowel, worrisome for enteritis. Correlate clinic ally. 3. Mucosal thickening involving the sigmoid colon and rectum. Correlate for colitis. POS: [facility]
[2019-04-02] MEDS: Acetaminophen 325 MG TAB PO PRN ×2 (16:51→20:43)
--- NOTE | 2019-04-02 17:32 | CON ---
DATE OF CONSULTATION: REASON FOR CONSULT: Breast cancer and neutropenia. HISTORY OF PRESENT ILLNESS: Ms. Samano is a frail 68-year-old female, who has a recurrent triple negative breast cancer. She was originally placed on Taxol in 2018, but unfortunately had progression in January of this year. She had a large dumbbell shaped abdominal mass near or involving the left adrenal gland. She was placed on Adriamycin on February 03 and has received four cycles. Her last cycle was on March 24. She did receive Neulasta injection after treatment. She has struggled with her weight since diagnosis in January of 2018. Her max weight at diagnosis was 102.6 pounds over the last several months, she has had a significant drop with a current weight of 75 pounds. She has been on Marinol for many months. Over the last several days, she has completely stopped eating and presented to the emergency room for weakness. Her white count was 400, hemoglobin was 8.3, and platelet count was 59,000. She had a low potassium of 2.9, which has been repleted. She was started on IV fluids and is currently feeling better. She had a reported fever of 101 in the emergency room, but no congestion, sore throat, or urinary issues. She has been admitted for further treatment. PAST MEDICAL HISTORY: 1. Metastatic triple negative breast cancer. 2. Diabetes mellitus 2. 3. Hypertension. 4. Coronary artery disease. 5. High cholesterol. 6. Anxiety and depression. 7. History of cervical cancer. 8. History of right breast cancer. 9. Peripheral vascular disease. 10. Obstructive sleep apnea. 11. Fibromyalgia. 12. Adrenal insufficiency. PAST SURGICAL HISTORY: 1. Tubal ligation. 2. Bilateral total mastectomies. 3. Cardiac catheterization. 4. CT-guided biopsy of her left adrenal mass. ALLERGIES: TO ERYTHROMYCIN, MEGESTROL, PENICILLIN, AND STEROIDS. HOME MEDICATIONS: 1. Aspirin 81 mg daily. 2. Plavix 75 mg daily. 3. Crestor 40 mg daily. 4. Cyclobenzaprine 10 mg at bedtime. 5. Fludrocortisone 0.1 mg b.i.d. 6. Midodrine 10 mg t.i.d. 7. Mirtazapine 30 mg at bedtime. 8. Multaq 400 mg b.i.d. 9. Nitrostat p.r.n. 10. Venlafaxine ER 150 mg daily. 11. Vitamin D3 of 2000 units daily. FAMILY HISTORY: Mother had brain cancer. Aunt with breast cancer. SOCIAL HISTORY: , has 4 children. Lives with her spouse. A 50 pack- year history of smoking. No alcohol or illicit drug use. REVIEW OF SYSTEMS: CONSTITUTIONAL: Positive for fever and chills and weight loss. EYES: No blurred or double vision. ENT: No pain, hoarseness, or sore throat. Positive for odynophagia. CV: No chest pain, palpitations, or syncope. RESPIRATORY: No shortness of breath, dyspnea on exertion, or orthopnea. GI: No nausea, vomiting, diarrhea, constipation, or abdominal pain. : No dysuria or hematuria. MUSCULOSKELETAL: No joint or back pain. SKIN: No rash or pruritus. HEMATOLOGIC: No bleeding, bruising, or clotting. NEUROLOGIC: Positive for weakness. No headache, numbness, tingling, or seizure activity. PSYCH: Positive for anxiety and depression. PHYSICAL EXAMINATION: VITAL SIGNS: Temperature is 100.1, pulse is 84, respiratory rate 14, and BP is 103/60. She is 96% on room air. GENERAL: This is a cachectic female, in no acute distress. HEENT: Normocephalic and atraumatic. Pupils are equal and reactive to light. NECK: Supple. CV: Regular rate and rhythm. LUNGS: Clear anterior. ABDOMEN: Soft and nontender. Bowel sounds are positive. EXTREMITIES: No clubbing, cyanosis, or edema. SKIN: No rash. HEMATOLOGIC: No petechiae or purpura. NEUROLOGIC: Nonfocal. PSYCH: She is alert, oriented, and appropriate. PERTINENT LABS AND X-RAYS: Current WBCs 0.3, hemoglobin 8.2, hematocrit 25.4, and platelet count 36,000. Sodium is 142, potassium 3.2, chloride 110, CO2 is 22, BUN is 22, creatinine 0.63, lactic acid 1.1, calcium 10.5, bilirubin is 0.8, AST is 10, ALT is less than 7, and alkaline phosphatase is 71. Creatine kinase is 13 and troponin 0.061. Serum total protein is 5.7, albumin 3.2, globulin 2.5, and lipase is less than 4. Urine is negative for bacteria. Chest x-ray showed no acute process. ASSESSMENT: 1. Metastatic end-stage breast cancer with abdominal mass, status post chemotherapy, cycle 4 Adriamycin. 2. Neutropenic fever. 3. Cachexia. 4. Pancytopenia secondary to chemotherapy. DISCUSSION: The patient is due for restaging with a CT scan. We will order it in-house. Should she have no improvement or progression, we will have a discussion about whether she can tolerate any further chemotherapy. She has been worked up for her swallowing issues in the past and there is no mechanical evidence of obstruction. We will continue the Marinol and encourage protein shakes. The case has been discussed with Dr. Calero. We will follow her hospital stay. Job ID: [id number] [facility]
[2019-04-02 17:41] LABS: Anion Gap 13 mmol/L (10-20); BUN (Urea Nitrogen) 18 mg/dL (9.8-20.1); Calc. Creatinine Clearance 49 mL/min (70-130); Calcium 10.3 mg/dL (7.8-10.44); Carbon Dioxide 21 mmol/L (23-31); Chloride 110 mmol/L (98-107); Estimated GFR-MDRD Greater than 90; Glucose 101 mg/dL (80-115); Potassium 3.1 mmol/L (3.5-5.1); Sodium 141 mmol/L (136-145)
[2019-04-02] MEDS ORDERED: Vancomycin HCl 500 MG in Sodium Chloride 0.9% 100 ML IVPB SCH (18:00)
[2019-04-02] MEDS: Mirtazapine 15 MG TAB PO SCH (20:32)
[2019-04-02] MEDS: Ondansetron ODT 4 MG TAB PO PRN (20:43)
[2019-04-02] MEDS: Vancomycin HCl 500 MG in Sodium Chloride 0.9% 100 ML IVPB SCH (22:25)
[2019-04-03 05:51] LABS: Hemoglobin 7.5 g/dL (12.0-16.0); Mean Corpuscular HGB CONC 32.1 g/dL (32.0-36.0); Mean Corpuscular Hemoglobin 32.3 pg (27.0-31.0); Platelet Count 17 thou/uL (130-400); RBC Distribution Width 14.8 % (11.5-14.5); Red Blood Cell (RBC) Count 2.31 mill/uL (4.20-5.40); White Blood Cell (WBC) Count 0.3 thou/uL (4.8-10.8)
[2019-04-03 05:52] LABS: ALT (SGPT) 7 U/L (8-55); AST (SGOT) 12 U/L (5-34); Albumin 2.9 g/dL (3.4-4.8); Alkaline Phosphatase 59 U/L (40-150); Anion Gap 14 mmol/L (10-20); BUN (Urea Nitrogen) 19 mg/dL (9.8-20.1); Bilirubin, Total 0.8 mg/dL (0.2-1.2); Calc. Creatinine Clearance 49 mL/min (70-130); Calcium 10.2 mg/dL (7.8-10.44); Carbon Dioxide 22 mmol/L (23-31); Chloride 113 mmol/L (98-107); Estimated GFR-MDRD Greater than 90; Globulin 2.9 g/dL (2.4-3.5); Glucose 104 mg/dL (80-115); Protein, Total 5.8 g/dL (6.0-8.3); Sodium 146 mmol/L (136-145)
[2019-04-03 05:57] LABS: Elliptocytes SLIGHT = 2-5 cells (100X) (0-1/hpf); MDiff Complete? YES; Platelet Morphology Comment Appears Decreased
[2019-04-03 06:06] LABS: Potassium 2.8 mmol/L (3.5-5.1)
[2019-04-03] MEDS ORDERED: Potassium Chloride 10 MEQ in Premix Bag 1 BAG IVPB SCH (07:00)
[2019-04-03] MEDS: Potassium Chloride 10 MEQ in Premix Bag 1 BAG IVPB SCH ×5 (07:45→11:48)
[2019-04-03] MEDS: Rosuvastatin 20 MG TAB PO SCH ×2 (08:03→08:24)
[2019-04-03] MEDS: Fish Oil 1,000 MG CAP PO SCH ×2 (08:03→08:24)
[2019-04-03] MEDS: Venlafaxine HCl XR 150 MG CAP PO SCH ×2 (08:03→08:24)
[2019-04-03] MEDS: Midodrine HCl 5 MG TAB PO SCH ×4 (08:03→17:43)
[2019-04-03] MEDS: Digoxin 0.125 MG TAB PO SCH ×2 (08:03→08:24)
[2019-04-03] MEDS: Dronedarone HCl 400 MG TAB PO SCH ×2 (08:24→17:43)
[2019-04-03] MEDS: Fludrocortisone Acetate 0.1 MG TAB PO SCH (08:24)
[2019-04-03] MEDS: Cefepime 2 GM in Sodium Chloride 0.9% 100 ML IVPB SCH ×2 (09:05→17:18)
[2019-04-03] MEDS ORDERED: Cepastat Lozenges 1 LOZ PO PRN (10:24)
[2019-04-03 12:13] LABS: Anion Gap 16 mmol/L (10-20); BUN (Urea Nitrogen) 18 mg/dL (9.8-20.1); Calc. Creatinine Clearance 49 mL/min (70-130); Calcium 10.2 mg/dL (7.8-10.44); Carbon Dioxide 21 mmol/L (23-31); Chloride 111 mmol/L (98-107); Estimated GFR-MDRD Greater than 90; Glucose 108 mg/dL (80-115); Potassium 3.5 mmol/L (3.5-5.1); Sodium 144 mmol/L (136-145)
[2019-04-03] MEDS ORDERED: Nystatin 100,000 Units/mL UDCUP SSW SCH (13:00)
[2019-04-03] MEDS: Nystatin 500,000 UNITS/5 ML UDCUP SSW SCH ×3 (14:33→21:04)
[2019-04-03] MEDS: Acetaminophen 325 MG TAB PO PRN (17:18)
--- NOTE | 2019-04-03 18:00 | PRG ---
DATE OF SERVICE: 04/03/2019 HISTORY OF PRESENT ILLNESS: I have been working with the patient to replace magnesium to get the patient's potassium back up. She has an intolerance to oral potassium, both liquid and pill variety. Port has been utilized, and nursing staff states that it is operating well. The patient and verbalized understanding regarding low platelets and discontinuation of aspirin and Plavix. Remains on antibiotics regarding neutropenia and fever prior to admission. The patient remains afebrile with T-max of 100.1 since admission. The patient's white blood cell count remains low at 0.3. Platelet count has dropped from 59 to 17. Hemoglobin is at 7.5 with MCV of 101. Potassium following replenishment this morning with IV 40 mEq with magnesium sulfate being given yesterday evening is up to 3.5 this afternoon. Sodium of 144, creatinine of 0.61, glucose of 121. More formal review of vital signs last is; temperature 98.4, pulse is 90, respiratory rate of 18 on room air, saturations are 96%, blood pressure 132/72. Following speaking with speech therapist, the patient has some oropharyngeal mild risk of aspiration; however, at this point, given her nutritional deficits and cachexia compounded from chemotherapy and cancer or metastatic disease. The patient at the best could be served by tube feeds, albeit to have discussion formally with family at bedside; however, they recommend full liquids with Ensure Enlive t.i.d., until decision is made there. However, reviewing on Hematology/Oncology's recommendations, it looks like the patient may have chosen hospice this afternoon following a family talk with Hematology/Oncology Team. We will discuss this tomorrow morning with the patient and family. This is definitely reasonable given her course and mass minimally changed. The CT report of abdomen and pelvis shows enteritis and colitis, which differential discussed with family could be metastatic disease versus infectious disease. The patient denies any diarrhea currently. Has been passing flatus, but has not had a bowel movement. The patient said she has not been eating very much. Denies any blood in the stools. 36-hour growth of urine culture is negative. 48-hour growth of blood cultures are negative x2. Chest x-ray was normal on admission. PHYSICAL EXAMINATION: GENERAL: The patient is alert and oriented, in no acute distress. HEENT: Head is normocephalic and atraumatic, cachectic with temporal wasting, bald following chemotherapy. Extraocular movements are intact. Oral mucosa is moist. NECK: Supple. HEART: Regular rate and rhythm at time of exam. No murmurs auscultated. LUNGS: Clear to auscultation bilaterally. No rubs or wheezes. ABDOMEN: Soft and nontender. Positive bowel sounds throughout. EXTREMITIES: Lower extremities without cyanosis or edema. NEUROLOGIC: The patient is alert and oriented x3. No focal deficits. Speech is normal. The patient does have a chesty cough at bedside, nonproductive. ASSESSMENT AND PLAN: Neutropenic fever, pancytopenia including thrombocytopenia down to 17, colitis, metastatic breast cancer with adrenal mass, possible metastatic disease to intestines, dysphagia with possible silent aspiration, hypokalemia, hypomagnesemia, orthostatic syncope, cachexia with severe protein malnutrition, presented on admission secondary to metastatic cancer and chemotherapy. We will discuss with family the patient's desire to fully go to hospice without any feeding tubes and discontinuing any cancer treatments would be certainly reasonable given her treatment course. We will support family either direction they choose. Discuss feeding options going forward including comfort feeds. Case Management has been consulted for discharge planning regarding this. Potassium has been adequately replaced as well as magnesium. We will look at de-escalating antibiotics tomorrow. No bleeding acutely with low platelets currently. No reported plan for transfusion; however, we will continue to trend cell counts while the patient is inpatient. Job ID: [id number]
[2019-04-03] MEDS: Mirtazapine 15 MG TAB PO SCH (21:12)
[2019-04-04] MEDS: Cefepime 2 GM in Sodium Chloride 0.9% 100 ML IVPB SCH ×2 (00:05→10:58)
[2019-04-04 01:38] LABS: Vancomycin, Trough 5.3 ug/mL
[2019-04-04] MEDS ORDERED: Vancomycin HCl 500 MG in Sodium Chloride 0.9% 100 ML IVPB SCH (02:00)
[2019-04-04] MEDS ORDERED: Morphine 2 MG/ML SYRINGE SLOW IVP PRN (04:41)
[2019-04-04] MEDS: Vancomycin HCl 500 MG in Sodium Chloride 0.9% 100 ML IVPB SCH (06:12)
[2019-04-04 06:16] LABS: Mean Corpuscular HGB CONC 31.9 g/dL (32.0-36.0); Mean Corpuscular Hemoglobin 32.4 pg (27.0-31.0); Mean Platelet Volume 14.2 fL (7.4-10.4); Platelet Count 8 thou/uL (130-400); RBC Distribution Width 14.5 % (11.5-14.5); Red Blood Cell (RBC) Count 2.17 mill/uL (4.20-5.40); White Blood Cell (WBC) Count 0.3 thou/uL (4.8-10.8)
[2019-04-04 06:32] LABS: ALT (SGPT) 7 U/L (8-55); AST (SGOT) 9 U/L (5-34); Albumin 2.7 g/dL (3.4-4.8); Alkaline Phosphatase 63 U/L (40-150); Anion Gap 10 mmol/L (10-20); BUN (Urea Nitrogen) 20 mg/dL (9.8-20.1); Bilirubin, Total 1.1 mg/dL (0.2-1.2); Calc. Creatinine Clearance 44 mL/min (70-130); Calcium 10.1 mg/dL (7.8-10.44); Carbon Dioxide 25 mmol/L (23-31); Chloride 112 mmol/L (98-107); Estimated GFR-MDRD 87; Globulin 2.5 g/dL (2.4-3.5); Glucose 147 mg/dL (80-115); Protein, Total 5.2 g/dL (6.0-8.3); Sodium 144 mmol/L (136-145)
[2019-04-04 06:46] LABS: Hypochromia MODERATE=16-30 cells (100X) (0-5/hpf); MDiff Complete? YES; Ovalocytes SLIGHT = 2-5 cells (100X) (0-1/hpf); Platelet Morphology Comment Appears Decreased; Reflex for Review?? NO
[2019-04-04] MEDS ORDERED: Potassium Chloride 40 MEQ in Premix Bag 1 BAG IVPB SCH (08:15)
[2019-04-04] MEDS ORDERED: Bacteriostatic Water 30 ML VIAL FS PRN (08:23)
[2019-04-04 08:37] LABS: Magnesium 1.6 mg/dL (1.6-2.6)
[2019-04-04] MEDS ORDERED: Dextrose 5 %-0.45 % NaCl 1,000 ML IV SCH (08:45)
[2019-04-04] MEDS: methylPREDNISolone Sod Succ 40 MG VIAL IVP SCH (08:49)
[2019-04-04] MEDS: Nystatin 500,000 UNITS/5 ML UDCUP SSW SCH ×5 (08:49→22:53)
[2019-04-04] MEDS ORDERED: methylPREDNISolone Sod Succ 40 MG VIAL IVP SCH (09:00)
[2019-04-04] MEDS: Dronedarone HCl 400 MG TAB PO SCH ×2 (09:06→17:07)
[2019-04-04] MEDS: Midodrine HCl 5 MG TAB PO SCH ×3 (09:23→17:35)
[2019-04-04] MEDS: Fludrocortisone Acetate 0.1 MG TAB PO SCH (09:23)
[2019-04-04] MEDS: Venlafaxine HCl XR 150 MG CAP PO SCH (09:27)
[2019-04-04 09:40] LABS: Phosphorus 1.6 mg/dL (2.3-4.7)
[2019-04-04] MEDS ORDERED: Magnesium Sulfate 3 GM in Sodium Chloride 0.9% 100 ML IVPB SCH (11:00)
[2019-04-04] MEDS ORDERED: Sodium Phosphate 30 MMOL in Sodium Chloride 0.9% 250 ML 250 ML IVPB SCH (12:00)
[2019-04-04] MEDS: Mirtazapine 15 MG TAB PO SCH (21:50)
[2019-04-04] MEDS: Morphine 10 MG/ML VIAL SLOW IVP PRN (22:50)
[2019-04-05 06:54] LABS: Phosphorus 1.7 mg/dL (2.3-4.7)
[2019-04-05 06:56] LABS: ALT (SGPT) 8 U/L (8-55); AST (SGOT) 8 U/L (5-34); Albumin 2.5 g/dL (3.4-4.8); Alkaline Phosphatase 63 U/L (40-150); Anion Gap 9 mmol/L (10-20); BUN (Urea Nitrogen) 21 mg/dL (9.8-20.1); Bilirubin, Total 1.2 mg/dL (0.2-1.2); Calc. Creatinine Clearance 49 mL/min (70-130); Calcium 9.3 mg/dL (7.8-10.44); Carbon Dioxide 27 mmol/L (23-31); Chloride 113 mmol/L (98-107); Estimated GFR-MDRD Greater than 90; Globulin 2.3 g/dL (2.4-3.5); Glucose 166 mg/dL (80-115); Magnesium 1.9 mg/dL (1.6-2.6); Potassium 3.1 mmol/L (3.5-5.1); Protein, Total 4.8 g/dL (6.0-8.3); Sodium 146 mmol/L (136-145)
[2019-04-05 07:44] LABS: Hemoglobin 8.2 g/dL (12.0-16.0); Mean Corpuscular HGB CONC 33.4 g/dL (32.0-36.0); Mean Corpuscular Hemoglobin 31.7 pg (27.0-31.0); Platelet Count 6 thou/uL (130-400); Red Blood Cell (RBC) Count 2.57 mill/uL (4.20-5.40); White Blood Cell (WBC) Count 0.7 thou/uL (4.8-10.8)
[2019-04-05] MEDS: Fludrocortisone Acetate 0.1 MG TAB PO SCH (08:23)
[2019-04-05] MEDS: Midodrine HCl 5 MG TAB PO SCH ×2 (08:23→12:15)
[2019-04-05] MEDS: Dronedarone HCl 400 MG TAB PO SCH ×2 (08:23→17:11)
[2019-04-05] MEDS: Venlafaxine HCl XR 150 MG CAP PO SCH (08:23)
[2019-04-05] MEDS: methylPREDNISolone Sod Succ 40 MG VIAL IVP SCH (08:31)
[2019-04-05] MEDS: Nystatin 500,000 UNITS/5 ML UDCUP SSW SCH ×4 (08:33→20:32)
[2019-04-05] MEDS ORDERED: Potassium Chloride 20 MEQ in Premix Bag 1 BAG IVPB SCH ×3 (10:45→14:15)
[2019-04-05 11:56] LABS: Band 4 % (5-11); Lymphocytes 32 % (21-51); MDiff Complete? YES; Monocytes 24 % (0-10); Neutrophil 36 % (42-75); Nucleated RBC 1 % (0); Platelet Morphology Comment Appears Decreased; Reactive Lymphocytes 4 % (0-10)
[2019-04-05] MEDS ORDERED: Hydrocortisone Sod Succ/PF 100 mg/2 ml Vial IVP SCH (15:00)
--- NOTE | 2019-04-05 15:34 | PRG ---
DATE OF SERVICE: 04/04/2019 HISTORY OF PRESENT ILLNESS: The patient has undergone magnesium replenishment and potassium replenishment, following up on low phosphate. The patient declining DNR/DNI status at the time of exam yesterday morning but would have further family discussions, is on board for hospice. Discussed multiple versions of hospice including inpatient unit. The family is interested in inpatient unit if possible. Concerns from son include dehydration and not wanting his mother to be specifically dehydrated while she is still conscious and alert. Increase the patient's morphine at more appropriate level, so she is complaining of pain above in what Tylenol has provided for her. She is having difficulty keeping down oral supplementation of potassium such as tablet and liquid. Verbalized understanding regarding starting of nystatin to help with the patient's taste buds. Currently, she is drinking minor amounts of coffee and root beer, but she is sensitive enough that she does not like the carbonation, so will allow soda to run flat prior to consumption. Hematology/Oncology recommended platelet transfusion, which is running. PHYSICAL EXAMINATION: VITAL SIGNS: This a.m. on 04/04/2019, temperature of 98.3, respiratory rate of 16, pulse of 82, and blood pressure of 93/53. GENERAL: The patient is alert and oriented, in no acute distress. The patient is cachectic. HEENT: Head is normocephalic and atraumatic. Extraocular movements are intact. Temporal wasting is noted. HEART: Regular rate and rhythm at the time of exam. No murmurs auscultated. LUNGS: Clear to auscultation bilaterally. No rubs or wheezes. ABDOMEN: Soft, nontender. Positive bowel sounds throughout. EXTREMITIES: Lower extremities are without cyanosis or edema. LABORATORY WORK: White blood cell count 0.3, hemoglobin 7.0, and platelets 8. Potassium of 3.0, phosphorus of 1.6, magnesium of 1.6, albumin of 2.7. ASSESSMENT AND PLAN: Suspected neutropenic fever transitioning into more whole-hearted pancytopenia. I discussed with family discontinuing antibiotics as current blood and urine cultures have been negative fully and a chest x-ray was normal. I did talk to them about CT scan with enteritis and colitis. However, this is unclear if this is cancer spread versus infection. However, there is no constipation or diarrhea reported. The patient simply does not have a lot of throughput because she has not eaten anything recently per the patient. The patient has metastatic breast cancer to adrenal glands replacing electrolytes including phosphate, magnesium, and potassium. Speech therapy and industry segment specialist have recommended tube feeding for the patient's overall health. However, the patient is not interested in tube feeds and family is looking at potential outpatient hospice. We will continue to follow along with Case Management and placement services for hospice once the patient is stabilized by electrolytes and cell counts. We will plan for transition to either inpatient hospice or outpatient. Job ID: [id number]
[2019-04-05] MEDS: Mirtazapine 15 MG TAB PO SCH (20:32)
[2019-04-05] MEDS: Acetaminophen 325 MG TAB PO PRN (22:54)
[2019-04-05] MEDS: Ondansetron ODT 4 MG TAB PO PRN (23:00)
[2019-04-05] MEDS: Morphine 10 MG/ML VIAL SLOW IVP PRN (23:02)
[2019-04-06 04:28] LABS: Hemoglobin 8.4 g/dL (12.0-16.0); Mean Corpuscular HGB CONC 32.8 g/dL (32.0-36.0); Mean Corpuscular Hemoglobin 31.3 pg (27.0-31.0); Mean Corpuscular Volume 95.6 fL (78.0-98.0); Mean Platelet Volume 11.5 fL (7.4-10.4); Platelet Count 25 thou/uL (130-400); RBC Distribution Width 15.7 % (11.5-14.5); Red Blood Cell (RBC) Count 2.68 mill/uL (4.20-5.40); White Blood Cell (WBC) Count 1.8 thou/uL (4.8-10.8)
[2019-04-06 04:48] LABS: Anion Gap 8 mmol/L (10-20); BUN (Urea Nitrogen) 17 mg/dL (9.8-20.1); Calc. Creatinine Clearance 54 mL/min (70-130); Calcium 9.6 mg/dL (7.8-10.44); Carbon Dioxide 30 mmol/L (23-31); Chloride 112 mmol/L (98-107); Estimated GFR-MDRD Greater than 90; Glucose 87 mg/dL (80-115); Magnesium 1.6 mg/dL (1.6-2.6); Phosphorus 2.6 mg/dL (2.3-4.7); Potassium 2.8 mmol/L (3.5-5.1); Sodium 147 mmol/L (136-145)
[2019-04-06 05:23] LABS: Band 30 % (5-11); Elliptocytes SLIGHT = 2-5 cells (100X) (0-1/hpf); Lymphocytes 27 % (21-51); MDiff Complete? YES; Metamyelocyte 5 % (0-0); Monocytes 18 % (0-10); Neutrophil 20 % (42-75); Platelet Morphology Comment Appears Decreased
[2019-04-06] MEDS ORDERED: Potassium Chloride 40 MEQ in Premix Bag 1 BAG IVPB SCH (05:30)
[2019-04-06] MEDS: Nystatin 500,000 UNITS/5 ML UDCUP SSW SCH ×4 (09:16→20:58)
[2019-04-06] MEDS: methylPREDNISolone Sod Succ 40 MG VIAL IVP SCH (09:22)
[2019-04-06] MEDS: Hydrocortisone Sod Succ/PF 100 mg/2 ml Vial IVP SCH (09:22)
[2019-04-06] MEDS: Dronedarone HCl 400 MG TAB PO SCH ×2 (09:28→17:17)
[2019-04-06] MEDS ORDERED: Morphine 4 MG/ML VIAL SLOW IVP PRN (18:07)
[2019-04-06] MEDS: Mirtazapine 15 MG TAB PO SCH (20:57)
[2019-04-06] MEDS: Pantoprazole 40 MG VIAL IVP SCH (21:02)
[2019-04-06] MEDS: Aluminum & Magnesium Hydroxide 60 ML, diphenhydrAMINE 150 MG, Lidocaine 2% Viscous Solu... SSW PRN (21:02)
[2019-04-07] MEDS: Hydrocortisone Sod Succ/PF 100 mg/2 ml Vial IVP SCH (08:11)
[2019-04-07] MEDS: methylPREDNISolone Sod Succ 40 MG VIAL IVP SCH (08:13)
[2019-04-07] MEDS: Nystatin 500,000 UNITS/5 ML UDCUP SSW SCH (08:15)
[2019-04-07] MEDS: Aluminum & Magnesium Hydroxide 60 ML, diphenhydrAMINE 150 MG, Lidocaine 2% Viscous Solu... SSW PRN ×2 (08:15→12:16)
[2019-04-07] MEDS: Dronedarone HCl 400 MG TAB PO SCH (08:15)
[2019-04-07] MEDS: Pantoprazole 40 MG VIAL IVP SCH (08:20)
[2019-04-07 08:38] VITALS: BP 159/77; TEMP 98.6
--- NOTE | 2019-04-07 09:41 | PRG ---
DATE OF SERVICE: 04/05/2019 HISTORY OF PRESENT ILLNESS: The patient agreed after speaking with myself, family discussions, as well as with the cancer team to become DNR/DNI. Code status was changed. [id number] DNR/DNI has been placed on chart, but has not been signed by family members and the patient, but is available for them to do so. They currently were screened for inpatient hospice transfer and was denied late yesterday. The patient had the best sleep reported she can remember with morphine injected. Nursing staff states she is not taking hardly any of her medication other than the nystatin orally including her antiarrhythmics and adrenal support medications for history of orthostatic hypotension from adrenal suppression secondary to metastatic disease to the adrenal glands. Heart rate was last noted to be 124, but the patient is actually asymptomatic and actually feeling better following blood transfusion of 1 unit of PRBCs and is now currently on 2nd unit of platelets given that they are critically low under 10. The patient has been undergoing multiple rounds of electrolyte replacement including magnesium, phosphorus, and potassium. Goals for family and myself appear to stabilize the patient's electrolytes. Currently, not wanting any sort of feeding tube despite verbalizing understanding this would be the long-term way to balance out electrolytes with boosting albumin and the patient's body as she is not able to properly hang onto them with lack there of. So far, the patient has not spiked a fever coming off antibiotics and has been off aspirin and Plavix going on greater than 48 hours now. She has tolerated IV fluids well through port and has been urinating well with that. If the patient stabilizes more, the patient's family feel reasonable it may be appropriate to discharge her home with home health hospice this coming Sunday or Sunday; however, they would be interested in moving to inpatient unit sooner if needed. I gave family option to request transition home sooner if the patient no longer wants to undergo electrolyte replenishment while inpatient. The patient is tolerating very minimal oral intake; last 24 hours 120 documented, nothing documented yesterday, day before only 100 mL documented, mostly coffee and sips of root beer. Review of vital signs, temperature this morning of 98.0, pulse 120, respiratory rate is 18, oxygen saturation is 96% on room air, blood pressure 113/60. Following steroid initiation, white blood cell count improved from 0.3 to 0.7. Following transfusion, hemoglobin improved from 7.0 to 8.2. Platelets remain critically low, going from 8 to 6. Potassium slowly trended up to 3.1 this morning. Creatinine of 0.61, glucose 166, phosphorus remains critically low at 1.7, magnesium improved to 1.9, albumin following hydration down to 2.5. PHYSICAL EXAMINATION: GENERAL: The patient is alert and oriented, in no acute distress. HEENT: Head is normocephalic and atraumatic. She is bald currently, cachectic with temporal wasting. Oral mucosa is moist. NECK: Supple. HEART: Regular rate and rhythm at the time of exam this morning. No murmurs auscultated. LUNGS: Clear to auscultation bilaterally. No rubs or wheezes. ABDOMEN: Soft and nontender. EXTREMITIES: Lower extremities without cyanosis or edema. NEUROLOGIC: The patient is alert and oriented x3. No focal deficits. Speech is normal. ASSESSMENT: Pancytopenia, colitis, metastatic breast cancer with adrenal mass, hypophosphatemia, hypokalemia, cachexia with severe protein malnutrition present on admission, orthostatic syncope secondary to above adrenal disease, and current failure to thrive. PLAN: The patient currently is in agreement with transitioning towards hospice route; however, family's wishes are currently to stabilize the patient given current condition in order to make her feel better, and she will do her best to transition towards oral intake, still at this point in time not requesting any sort of feeding tube. We will likely look to transition Sunday or Sunday. We will continue to replace electrolytes. Currently, getting sodium, phosphorus, and IV potassium today. Continuing IV steroids to hopefully give the patient steroid burst for lack oral intake of the patient's standard steroid such as Cortef, may look at supplementing IV Cortef and discontinuing orals more since the patient is refusing them. We will not workup the patient's mild tachycardia, has a prior history of atrial fibrillation, but the patient remains asymptomatic at this point in time. Job ID: [id number]
--- NOTE | 2019-04-07 09:56 | RAD ---
EXAM: Single view of the chest HISTORY: Cough COMPARISON: 04/01/2019 FINDINGS: Single view of the chest shows a normal sized cardiomediastinal silhouette. Atheroscleroti c calcific lesions are seen in the aorta. The Mediport and cardiac monitoring device are unchanged in position. A small left pleural effusion is seen. Mild degenerative changes are seen in the spine. IMPRESSION: Small left pleural effusion
--- NOTE | 2019-04-07 10:03 | PRG ---
DATE OF SERVICE: 04/06/2019 HISTORY OF PRESENT ILLNESS: The patient slept well again, verbalized understanding regarding improved cell counts following steroid initiation. Additionally, used hydrocortisone IV after the patient unable to tolerate additional oral medications. Currently, the patient is roughly only taking nystatin swish and spit per nursing staff from her home medications . After a brief episode of tachycardia over the last 24 hours, the patient's heart rate has remained stable. After prolonged discussion with the patient and family at bedside and son, Erich, verbalized understanding for her to require feeding tube to improve the patient's electrolytes and cell counts any further, but the patient is adamantly against feeding tubes and has chosen DNR/DNI status and accordance with her wishes going toward hospice following failure of chemotherapy for her metastatic breast cancer with adrenal metastasis and known colitis. Nursing staff does report that she had an episode of coughing resultant with some blood in her mouth this afternoon. Her platelets this morning had recovered to 25 following 2 units of platelets, 1 unit of PRBCs. White blood count 1.8, neutrophil percent of 20, hemoglobin of 8.4. Potassium of 2.8 this morning, sodium of 143, creatinine of 0.55. Phosphorus improved to 2.6, magnesium 1.6, calcium 9.6. PHYSICAL EXAMINATION: GENERAL: The patient is alert, oriented, in no acute distress. HEENT: Head is normocephalic and atraumatic. Extraocular movements are intact. The patient is currently bulk, cachectic with temporal wasting. HEART: Regular rate and rhythm at time of exam. No murmurs auscultated. LUNGS: Clear to auscultation bilaterally. No rubs or wheezes. ABDOMEN: Soft, nontender. Positive bowel sounds throughout. EXTREMITIES: Lower extremities without cyanosis or edema. NEUROLOGICAL: The patient is alert and oriented x3. No focal deficits. Speech is normal. ASSESSMENT AND PLAN: Resolving pancytopenia following initiation of new chemotherapy regimen. Colitis, metastatic breast cancer with adrenal metastases, hypophosphatemia, hypokalemia, hypomagnesemia, orthostatic syncope, cachexia with severe protein malnutrition, dysphagia. If the patient is amicable to with her current chosen home health hospice company, would look to discharge tomorrow following IV medications in the morning with any potential tolerance of medication with applesauce or pudding going forward with comfort feeds. We will discuss with family in a.m. Given the patient reporting heartburn symptoms , we will check a chest x-ray prior to discharge for any need for antibiotic therapy. The patient has been stable off IV antibiotics for several days with negative cultures. Job ID: [id number]
[2019-04-07] MEDS ORDERED: Sodium Chloride 0.9% 500 ML IV SCH (10:30)
== END 2019-04-07 13:42 | disposition hospice, home (50) | DRG 808 ==
LOC: ERS 15:51 → SURG B 21:42 → ONC 04-02 18:29
PROVIDERS: ADMIT Emergency Medicine; ATTEND Family Medicine
PROC: 30233N1 Transfusion of Nonautologous Red Blood Cells into Peripheral Vein, Percutaneous Approach (ICD-10-PCS; principal; 2019-04-04)
DX: D70.1 Agranulocytosis secondary to cancer chemotherapy (principal); E43 Unspecified severe protein-calorie malnutrition; E27.40 Unspecified adrenocortical insufficiency; Z68.1 Body mass index [BMI] 19.9 or less, adult; C79.70 Secondary malignant neoplasm of unspecified adrenal gland; D61.810 Antineoplastic chemotherapy induced pancytopenia; I10 Essential (primary) hypertension; I48.91 Unspecified atrial fibrillation; Z66 Do not resuscitate; E87.6 Hypokalemia; E11.65 Type 2 diabetes mellitus with hyperglycemia; R19.00 Intra-abdominal and pelvic swelling, mass and lump, unspecified site; I25.10 Atherosclerotic heart disease of native coronary artery without angina pectoris; R50.81 Fever presenting with conditions classified elsewhere; E78.00 Pure hypercholesterolemia, unspecified; F41.9 Anxiety disorder, unspecified; F32.9 Major depressive disorder, single episode, unspecified; T45.1X5A Adverse effect of antineoplastic and immunosuppressive drugs, initial encounter; G47.33 Obstructive sleep apnea (adult) (pediatric); C50.911 Malignant neoplasm of unspecified site of right female breast; C50.912 Malignant neoplasm of unspecified site of left female breast; R13.10 Dysphagia, unspecified; I95.1 Orthostatic hypotension; E83.42 Hypomagnesemia; K52.9 Noninfective gastroenteritis and colitis, unspecified; E83.39 Other disorders of phosphorus metabolism; Z90.13 Acquired absence of bilateral breasts and nipples; Z85.41 Personal history of malignant neoplasm of cervix uteri; Z85.3 Personal history of malignant neoplasm of breast; Z88.0 Allergy status to penicillin; Z88.8 Allergy status to other drugs, medicaments and biological substances; Z79.02 Long term (current) use of antithrombotics/antiplatelets; Z88.1 Allergy status to other antibiotic agents; Z79.899 Other long term (current) drug therapy; Z79.82 Long term (current) use of aspirin; Z98.51 Tubal ligation status; Z79.51 Long term (current) use of inhaled steroids
CPT/HCPCS: 36415; 36416; 36430; 71045; 74177; 80048; 80053; 80202; 81003; 81015; 82550; 82553; 83605; 83690; 83735; 84100; 84484; 85025; 85060; 86850; 86900; 86901; 87040; 87086; 93005; 96361; 96365; 96366; 96367; C9113; J0692; J1642; J1720; J2270; J2920; J3370; J3475; J3480; J3490; J7050; P9016; P9035; Q0162; Q0163; Q9967